=== PATIENT | male | born 1935 | race Caucasian/White ===

== ENCOUNTER 2020-05-28 15:18 | Inpatient (IN) | payer BC ==
[~2020-05-28] VITALS: Ht 170.2 cm; Wt 70.3 kg
--- NOTE | 2020-05-28 15:20 | NUR ---
PT JAYDE FROM [facility] ([place], [place]) FOR EMERGENCY DIALYSIS. PT IS AAOX2, NOT IN RESPIRATORY DISTRESS, HOOKED TO CONTROLS PROJECT ENGINEER, KEPT RESTED AND COMFORTABLE. WILL CONTINUE TO MONITOR.
--- NOTE | 2020-05-28 15:32 | NUR ---
SEEN AND EXAMINED BY .
--- NOTE | 2020-05-28 15:50 | NUR ---
IV LINE ESTABLISHED BLOOD DRAWN AND SENT TO LAB.
[2020-05-28 16:00] LABS: BASOPHILS % (AUTO) 0.3 % (0.0-2.0); EOSINOPHILS % (AUTO) 4.8 % (0.0-6.0); HEMATOCRIT 32 % (39-51); HEMOGLOBIN 10.2 g/dL (13.5-17.5); LYMPHOCYTES # (AUTO) 1.5 /CMM (0.8-4.8); LYMPHOCYTES % (AUTO) 21.7 % (20.0-44.0); MEAN CORPUSCULAR HGB CONC 32 g/dl (31.0-36.0); MEAN CORPUSCULAR VOLUME 91 fL (80-96); MONOCYTES # (AUTO) 0.7 /CMM (0.1-1.30); MONOCYTES % (AUTO) 10.6 % (2.0-12.0); NEUTROPHILS # (AUTO) 4.3 /CMM (1.8-8.9); NEUTROPHILS % (AUTO) 62.6 % (43.0-81.0); PLATELET COUNT (AUTO) 125 /CMM (150-450); RED BLOOD CELL COUNT(AUTO) 3.54 MIL/uL (4.5-6.0); WHITE BLOOD COUNT (AUTO) 6.9 K/uL (4.3-11.0)
[2020-05-28 16:15] LABS: ALANINE AMINOTRANSFERASE 18 U/L (12-78); ALBUMIN 3.3 g/dL (3.4-5.0); ALKALINE PHOSPHATASE 101 U/L (46-116); ASPARTATE AMINOTRANSFERASE 34 U/L (15-37); BILIRUBIN,DIRECT 0.1 mg/dL (0.0-0.2); BILIRUBIN,TOTAL 0.3 mg/dL (0.2-1.0); CALCIUM, SERUM 9.3 mg/dL (8.5-10.1); CARBON DIOXIDE 26 mmol/L (21-32); CHLORIDE 98 mmol/L (98-107); CREATININE 7.1 mg/dL (0.6-1.3); GLUCOSE 115 mg/dL (74-106); POTASSIUM 4.5 mmol/L (3.5-5.1); SODIUM SERUM 135 mmol/L (136-145); TOTAL PROTEIN, SERUM 6.8 g/dL (6.4-8.2); UREA NITROGEN, BLOOD 34 mg/dL (7-18)
--- NOTE | 2020-05-28 16:21 | NUR ---
COVID SWAB OBTAINED AND SENT TO LAB.
--- NOTE | 2020-05-28 16:40 | NUR ---
MOVE SHEET SUBMITTED
--- NOTE | 2020-05-28 16:44 | NUR ---
CALLED HOUSE SUP FOR TELEBED PANCHO PER
[2020-05-28] MEDS ORDERED: CARV3.12 PO (16:57)
[2020-05-28] MEDS ORDERED: AMLO2.5T2 PO (16:57)
[2020-05-28] MEDS ORDERED: SIMV-46 PO (16:57)
[2020-05-28] MEDS ORDERED: MAGN400O6 PO (16:57)
[2020-05-28] MEDS ORDERED: MEMA10TA PO (16:57)
[2020-05-28] MEDS ORDERED: NUT.237L67 PO (16:57)
[2020-05-28] MEDS ORDERED: VIT1TABL46 PO (16:57)
[2020-05-28] MEDS ORDERED: QUET50TA15 PO (16:57)
[2020-05-28] MEDS ORDERED: ACET325T53 PO (16:57)
[2020-05-28] MEDS ORDERED: SEVE800T8 PO (16:57)
[2020-05-28] MEDS ORDERED: CHOL200010 PO (16:57)
[2020-05-28] MEDS ORDERED: MELA1TAB25 PO (16:57)
[2020-05-28] MEDS ORDERED: DONE10TA44 PO (16:57)
[2020-05-28] MEDS ORDERED: TIMO5DRO35 LEFTEYE (16:57)
[2020-05-28] MEDS ORDERED: FAMO20TA8 PO (16:57)
[2020-05-28] MEDS ORDERED: PRAM0.253 PO (16:57)
[2020-05-28] MEDS ORDERED: HYDR-4077 PO (16:57)
[2020-05-28] MEDS ORDERED: DOCU-141 PO (16:57)
[2020-05-28] MEDS ORDERED: LOPE2TAB25 PO (16:57)
[2020-05-28] MEDS ORDERED: NITR0.4T48 SL (16:57)
--- NOTE | 2020-05-28 17:09 | NUR ---
GOT BED 256
--- NOTE | 2020-05-28 17:45 | NUR ---
REPORT GIVEN TO LYNDA NAGY FOR RENATA.
--- NOTE | 2020-05-28 17:58 | NUR ---
TOXICOLOGIST NOTES RECEIVED PT FROM ER, PER REPORT PATIENT IS FOR HD, DUE TO A MISSED HD YESTERDAY. PATIENT IS ALERT ORIENTED X 3, ON ROOM AIR, NOT IN ANY DISTRESS, RESPIRATION UNLABORED. SINUS RHYTHM WITH BBB HR 74, DENIES ANY PAIN OR DISCOMFORT AT THIS TIME. OLD AV SHUNT ON LEFT UPPER ARM, WITH HD CATH TO RIGHT CHEST WALL WITH CDI DRESSING, RT WRIST G 22, FLUSHES WELL SITE CLEAR. ISOLATION PRECAUTION OBSERVED FOR R/O COVID. BEDREST FOR NOW, UNIT ORIENTATION AND USE OF CALL LIGHT DONE, DISCUSSED PLAN FOR HD TODAY, CONSENT TO BE SIGNED. BED LOW LOCKED, SAFETY MEASURES IN PLACE, CALL LIGHT WITH IN REACH. WILL CONT TO MONITOR.
--- NOTE | 2020-05-28 18:17 | NUR ---
RN NOTES DR. MICHELLE DIEHL NOTIFIED. ADMITTING ORDERS GIVEN AND CARRIED OUT.
--- NOTE | 2020-05-28 18:22 | NUR ---
RN NOTES DR. Stephon DIEHL AWARE OF BP 213/70. NO BP MEDS GIVEN FOR NOW, PER MD HE WILL HAVE HD TODAY. DIANE HD NURSE AT BEDSIDE.
[2020-05-28 18:50] VITALS: BP 164/71
--- NOTE | 2020-05-28 19:10 | NUR ---
RN NOTES RECEIVED PT ON BED AWAKE A/O X4 ON ROOM AIR SPO2 98% BEDSIDE MONITOR READS SINUS RHYTHM 80'S PT IS CURRENTLY ON HD, TOLERATING WELL HD NURSE AT BEDSIDE, CURRENT BP 183/76 HR 69 TEMP 98.2 RR 20, PT IS ON DROPLET ISOLATIO TO R/O COVID PENDING RESULT, SAFETY MEASURE MAINTAINED BED ON LOWEST POSITION AND LOCKED SIDERAILS UP X4 WILL CONT TO MONITOR
--- NOTE | 2020-05-28 19:26 | NUR ---
RN NOTES PER , CONTINUE ALL HOME MEDICATIONS AND FAXED TO PHARMACY. REPORT GIVEN TO DONNY HOWELL FOR RENATA
[2020-05-28] MEDS ORDERED: ACETAMINOPHEN 325 MG TABLET PO PRN (19:30)
[2020-05-28 20:00] VITALS: BP 100/51
--- NOTE | 2020-05-28 21:00 | NUR ---
RN NOTES PT COMPLETED HD OUTPUT 2L WITH LATEST V/S OF 170/54 HR 75 TEMP 98.1 RR 18 PT IS AWAKE A/O X 4 SANDWICH WAS GIVEN ATE WELL WILL CONT TO MONITOR
[2020-05-28] MEDS: DONEPEZIL 5 MG TABLET PO SCH (21:15)
[2020-05-28] MEDS: SIMVASTATIN 20 MG TABLET PO SCH (21:15)
[2020-05-28] MEDS: QUETIAPINE FUMARATE 25 MG TABLET PO SCH (21:15)
[2020-05-28] MEDS: NITROGLYCERIN 30 GM TUBE TP PRN (21:16)
[2020-05-28] MEDS: PRAMIPEXOLE DI-HCL 0.25 MG TABLET PO SCH (22:00)
--- NOTE | 2020-05-28 22:00 | NUR ---
RN NOTES CALLED DR. DIEHL AND REPORT THAT PT BLOOD PRESSURE IS STILL HIGH WITH 202/73 HR 67 DESPITE GIVING THE PRN NITROL CREAM, DR. DIEHL GIVE ORDER FOR HYDRALAZINE 10MG IV Q8H FOR SBP >180 NOTED AND CARRIED OUT
--- NOTE | 2020-05-28 22:26 | NUR ---
RN NOTES MIRAPEX NOT GIVEN NOT AVAILABLE CHARGE NURSE/MD AWARE
[2020-05-28] MEDS: hydrALAZINE HCL IV 20 MG VIAL IV PRN (22:36)
--- NOTE | 2020-05-28 23:00 | NUR ---
RN NOTES BP RECHECKED 164/48 HR 68 WILL CONT TO MONITOR THE PT
[2020-05-29] VITALS (9 sets, daily range): BP systolic 145–198; BP diastolic 39–75
[2020-05-29] MEDS: hydrALAZINE HCL IV 20 MG VIAL IV PRN ×2 (04:21→16:48)
[2020-05-29 04:50] LABS: BASOPHILS # (AUTO) 0.1 /CMM (0.0-0.2); BASOPHILS % (AUTO) 0.8 % (0.0-2.0); EOSINOPHILS % (AUTO) 5.4 % (0.0-6.0); HEMATOCRIT 31 % (39-51); LYMPHOCYTES # (AUTO) 1.6 /CMM (0.8-4.8); LYMPHOCYTES % (AUTO) 23.1 % (20.0-44.0); MEAN CORPUSCULAR HGB CONC 32 g/dl (31.0-36.0); MEAN CORPUSCULAR VOLUME 89 fL (80-96); MONOCYTES # (AUTO) 0.9 /CMM (0.1-1.30); MONOCYTES % (AUTO) 13.2 % (2.0-12.0); NEUTROPHILS # (AUTO) 3.9 /CMM (1.8-8.9); NEUTROPHILS % (AUTO) 57.5 % (43.0-81.0); WHITE BLOOD COUNT (AUTO) 6.8 K/uL (4.3-11.0)
[2020-05-29 05:01] LABS: CALCIUM, SERUM 8.9 mg/dL (8.5-10.1); CARBON DIOXIDE 28 mmol/L (21-32); CHLORIDE 100 mmol/L (98-107); CREATININE 5.4 mg/dL (0.6-1.3); GLUCOSE 75 mg/dL (74-106); POTASSIUM 3.9 mmol/L (3.5-5.1); SODIUM SERUM 136 mmol/L (136-145); UREA NITROGEN, BLOOD 26 mg/dL (7-18)
[2020-05-29 06:16] LABS: PLATELET COUNT (AUTO) 106 /CMM (150-450)
[2020-05-29 06:19] LABS: BASOPHILS % (MANUAL) 1 % (0.0-2.0); EOSINOPHILS % (MANUAL) 3 % (0-4); LYMPHOCYTES % (MANUAL) 24 % (16-48); MONOCYTES % (MANUAL) 13 % (0-11.0); NEUTROPHILS % (MANUAL) 59 (42-76)
--- NOTE | 2020-05-29 06:20 | NUR ---
SENIOR MOBILE WEB DEVELOPER NOTES RECEIVED PATIENT FROM ICU VIA WHEELCHAIR, ALERT AND ORIENTED X 3. VERBALLY RESPONSIVE AND ABLE TO FOLLOW DIRECTIONS. BREATHING REGULAR AND UNLABORED ON ROOM AIR. RIGHT WRIST G22 IV LINE INTACT AND PATENT, FLUSHING WELL. ON CARDIAC MONITORING WITH NSR WITH PAC'S AT 64bpm. DENIES SUICIDAL IDEATION OR PAIN/DISCOMFORT AT THIS TIME. BED LOW AND LOCKED ON SEMI FOWLERS POSITION. CALL LIGHT IN REACH. WILL CONTINUE TO MONITOR.
--- NOTE | 2020-05-29 06:24 | NUR ---
RN NOTES TRANSFER PT TO ROOM 202 PER ACLS PROTOCOL PT LATEST V/S BEFORE TRANSFER IS 164/86 HR 62 RR 20 TEMP 97.8 SPO2 98% VIA ROOM AIR, PT IS AWAKE A/O X4, REPORT GIVEN TO MS HAILY HOWELL OF [facility] FOR RENATA
--- NOTE | 2020-05-29 07:01 | NUR ---
RN JERMAINE DEJESUS ( PT DAUGHTER ) MADE AWARE OF THE TRANSFER VIA PHONE CALL AND DR. DIEHL ALSO MADE AWARE OF THE TRANSFER
--- NOTE | 2020-05-29 07:30 | NUR ---
MANAGER RISK MANAGEMENT NOTES PT IN BED, ASLEEP, EASY TO AROUSE, ALERT AND ORIENTED, DENIES PAIN, RESPIRATIONS NORMAL, CALL LIGHT WITHIN REACH, KEPT WARM AND COMFORTABLE IN BED.
[2020-05-29] MEDS: NITROGLYCERIN 30 GM TUBE TP PRN (08:46)
[2020-05-29] MEDS ORDERED: SIMVASTATIN 20 MG TABLET PO SCH (09:30)
[2020-05-29] MEDS ORDERED: MAGNESIUM HYDROXIDE 30 ML UDC PO PRN (09:30)
[2020-05-29] MEDS ORDERED: NITROGLYCERIN 0.4 MG/TAB BOTTLE SL PRN (09:30)
[2020-05-29] MEDS: CHOLECALCIFEROL 1,000 UNIT TABLET (VIT D3) PO SCH (09:59)
[2020-05-29] MEDS: DOCUSATE SODIUM 100 MG CAPSULE PO SCH (09:59)
[2020-05-29] MEDS: VIT B CMPLX 3/FA/VIT C/BIOTIN 1 TAB TABLET PO SCH (09:59)
[2020-05-29] MEDS: FAMOTIDINE (20 MG) 20 MG TABLET PO SCH (09:59)
[2020-05-29] MEDS: AMLODIPINE BESYLATE 2.5 MG TABLET PO SCH (10:00)
[2020-05-29] MEDS: CARVEDILOL 3.125 MG TABLET PO SCH ×2 (10:00→16:08)
[2020-05-29] MEDS: hydrALAZINE HCL 50 MG TABLET PO SCH ×3 (10:00→16:08)
[2020-05-29 10:19] LABS: THYROID STIMULATING HORMONE 3.557 uIU/mL (0.358-3.74)
[2020-05-29] MEDS ORDERED: LOPERAMIDE HCL (2 MG CAP) 2 MG CAPSULE PO PRN (10:30)
--- NOTE | 2020-05-29 10:33 | NUR ---
SWITCHBOARD TROUBLESHOOTER NOTES PT IN BED, AWAKE, ALERT AND ORIENTED, DENIES PAIN, NOT IN DISTRESS, SEEN BY DR. Stephon DIEHL, NO FURTHER DIALYSIS ORDERED, PT'S NEXT DIALYSIS WILL BE ON SATURDAY, PT INFORMED, HIDE SORTER INFORMED.
[2020-05-29] MEDS: SEVELAMER CARBONATE 800 MG POWD.PACK PO SCH ×3 (10:44→17:33)
[2020-05-29] MEDS: MEMANTINE HCL 5 MG TABLET PO SCH (16:07)
--- NOTE | 2020-05-29 16:30 | NUR ---
SUBSTATION OPERATOR CHIEF NOTES PT IN BED, NO COMPLAINT AT THIS TIME, PT FOR DISCHARGE TO [facility], SPOKE WITH SHITAL, INFORMED THAT PT IS BEING DISCHARGED BACK AT 1700, PT'S DAUGHTER CORA INFORMED WELL.
--- NOTE | 2020-05-29 17:47 | NUR ---
SCALES INSPECTOR NOTES PT IN BED, AWAKE, ALERT AND ORIENTED, NO COMPLAINT OF PAIN OR ANY DISCOMFORT, PT'S BP STILL ELEVATED AT 171/68 HR 74, ALL PO AND PRN BP MEDS GIVEN ORDERED, AMBULANCE OUTREACH SPECIALIST IS HERE, RECEIVED ORDER FROM DR. Stephon DIEHL TO GIVE HYDRALAZINE 10MG IV X 1, ORDERS NOTED, WILL CONTINUE TO MONITOR, PLACED AMBULANCE SERVICE ON WILL CALL.
[2020-05-29] MEDS ORDERED: hydrALAZINE HCL IV 20 MG VIAL IV ONE (18:00)
--- NOTE | 2020-05-29 18:09 | NUR ---
LUMPIA WRAPPER MAKER NOTES PT IN BED, BP MED GIVEN ORDERED, WILL CONTINUE TO MONITOR, NO COMPLAINT OF PAIN OR ANY DISCOMFORT, EATING DINNER, TOLERATES WELL.
--- NOTE | 2020-05-29 18:14 | NUR ---
OSTEOPATHIC NEUROLOGIST NOTES PT REMOVED HIS TELE BOX, REFUSES TO HAVE THEM ON.
--- NOTE | 2020-05-29 18:50 | NUR ---
HIRED HAND NOTES PT'S NEHA BARRETT OF [facility] INFORMED THAT PT'S DISCHARGE IS DELAYED.
--- NOTE | 2020-05-29 18:50 | NUR ---
LOGISTICS LOSS PREVENTION MANAGER NOTES PT'S BP NOW 172/62 HR 71, DR. DIEHL INFORMED, NO FURTHER ORDER GIVEN, PER MD, PT CAN STAY OVERNIGHT FOR MONITORING, PT IN BED, EATING DINNER, NO COMPLAINT OF PAIN, NOT IN DISTRESS, CALL LIGHT WITHIN REACH, NEEDS ATTENDED.
--- NOTE | 2020-05-29 19:20 | NUR ---
CREDIT AUTHORIZER OPEN NOTES PATIENT IS LAYING IN BED WATCHING TV. A/O X3-4. ON RA, NO SOB/ ACUTE RESPIRATORY DISTRESS NOTED. NO COMPLAINTS OF PAIN AT THE MOMENT. BED IS IN LOWEST LOCKED POSITION WITH SIDE RAILS UP X3, SEMI FOWLERS. CALL LIGHT IS WITHIN REACH. WILL CONTINUE TO MONITOR.
--- NOTE | 2020-05-29 19:25 | NUR ---
SPECIAL PROCEDURES NURSE NOTES PLACED TELE MONITOR BACK ON PT. EXPLAINED TO HIM THAT HE IS NOT GETTING DISCHARGED YET DUE TO HIS HIGH BP AND THAT WE NEED TO MONITOR HIM. PT AGREED TO HAVING IT PLACED BACK ON. WILL CONTINUE TO MONITOR.
[2020-05-29] MEDS: DONEPEZIL 5 MG TABLET PO SCH (21:06)
[2020-05-29] MEDS: SIMVASTATIN 20 MG TABLET PO SCH (21:07)
[2020-05-29] MEDS: PRAMIPEXOLE DI-HCL 0.25 MG TABLET PO SCH (21:07)
[2020-05-29] MEDS: QUETIAPINE FUMARATE 25 MG TABLET PO SCH (21:07)
[2020-05-29] MEDS ORDERED: Medication Not On Formulary EA (Melatonin/Pyridoxine HCl (B6) (Melatonin 10 mg Tablet) 1 PO SCH (22:00)
[2020-05-29] MEDS ORDERED: Medication Not On Formulary EA (Donepezil Hcl 10 MG) PO SCH (22:00)
[2020-05-29] MEDS ORDERED: PRAMIPEXOLE DI-HCL 0.25 MG TABLET PO SCH (22:00)
[2020-05-30 00:22] VITALS: BP 158/72
[2020-05-30 04:00] VITALS: BP 193/91
[2020-05-30] MEDS ORDERED: hydrALAZINE HCL IV 20 MG VIAL ONE (04:43)
[2020-05-30] MEDS: hydrALAZINE HCL IV 20 MG VIAL IV PRN (04:50)
--- NOTE | 2020-05-30 05:06 | NUR ---
SURGICAL NURSE NOTES PT'S BP WAS 193/91, UNIT DOESN'T HAVE HYDRALAZINE 10MG IV PRN IN STOCK. REMOVED THE MED FROM 3W IN WHICH I STATED I AM ONLY ADMINISTERING 10MG. PT'S EMAR NOW SHOWS HE HAS A SCHEDULED HYDRALAZINE 20MG @ 0443 "STOCK MED ONCE." PER PHARMACY, JUST SCAN AND PUT IN NOTES THAT I AM ADMINISTERING THE HYDRALAZINE 10 MG PRN IV.
--- NOTE | 2020-05-30 06:14 | NUR ---
MINE SHIFTER CLOSE NOTES PATIENT IS LAYING IN BED. A/O X4. ON RA, SATURATING > 95%, NO SOB/ ACUTE RESPIRATORY DISTRESS NOTED. TELE MONITOR READING SR, 78. IV IN R WRIST #22G IS PATENT AND INTACT. PATIENT DENIES ANY PAIN AT THE MOMENT. BED IS IN LOWEST LOCKED POSITION WITH SIDE RAILS UP X3, SEMI FOWLERS. BED ALARM ON. CALL LIGHT IS WITHIN REACH. WILL ENDORSE TO AM NURSE.
[2020-05-30 06:31] VITALS: BP 173/87
--- NOTE | 2020-05-30 07:30 | NUR ---
RN OPENING NOTES\ PATIENT IN STABLE CONDITION. NOT IN ANY FORM OF DISTRESS. NO SOB. DENIED PAIN OR DISCOMFORT AT THIS TIME. IV ACCESS INTACT AND PATENT. SAFETY MEASURES INITIATED. BED IN LOW/LOCKED POSITION. SIDERAILS UPX2,CALL LIGHT IN REACH. WILL CONT TO MONITOR. ACCORDINGLY
[2020-05-30 08:00] VITALS: BP 177/67
[2020-05-30] MEDS: AMLODIPINE BESYLATE 2.5 MG TABLET PO SCH (09:00)
[2020-05-30] MEDS: hydrALAZINE HCL 50 MG TABLET PO SCH (09:00)
[2020-05-30] MEDS ORDERED: TIMOLOL 0.5% SOLN OPHTH 5 ML BOTTLE LEFTEYE SCH (09:00)
[2020-05-30] MEDS: CARVEDILOL 3.125 MG TABLET PO SCH (09:00)
[2020-05-30] MEDS: DOCUSATE SODIUM 100 MG CAPSULE PO SCH (09:01)
[2020-05-30] MEDS: SEVELAMER CARBONATE 800 MG POWD.PACK PO SCH ×2 (09:01→13:02)
[2020-05-30] MEDS: CHOLECALCIFEROL 1,000 UNIT TABLET (VIT D3) PO SCH (09:02)
[2020-05-30] MEDS: FAMOTIDINE (20 MG) 20 MG TABLET PO SCH (09:02)
[2020-05-30] MEDS: VIT B CMPLX 3/FA/VIT C/BIOTIN 1 TAB TABLET PO SCH (09:03)
[2020-05-30] MEDS: MEMANTINE HCL 5 MG TABLET PO SCH (09:03)
[2020-05-30] MEDS ORDERED: ISOSORBIDE DINITRATE (20MG) 20 MG TABLET PO SCH (10:00)
[2020-05-30 10:05] LABS: BASOPHILS % (AUTO) 0.7 % (0.0-2.0); EOSINOPHILS % (AUTO) 6.1 % (0.0-6.0); HEMATOCRIT 33 % (39-51); HEMOGLOBIN 10.5 g/dL (13.5-17.5); LYMPHOCYTES # (AUTO) 1.1 /CMM (0.8-4.8); LYMPHOCYTES % (AUTO) 17.5 % (20.0-44.0); MEAN CORPUSCULAR HGB CONC 32 g/dl (31.0-36.0); MEAN CORPUSCULAR VOLUME 89 fL (80-96); MONOCYTES # (AUTO) 0.7 /CMM (0.1-1.30); MONOCYTES % (AUTO) 10.9 % (2.0-12.0); NEUTROPHILS # (AUTO) 4.2 /CMM (1.8-8.9); NEUTROPHILS % (AUTO) 64.8 % (43.0-81.0); PLATELET COUNT (AUTO) 101 /CMM (150-450); RED BLOOD CELL COUNT(AUTO) 3.66 MIL/uL (4.5-6.0); WHITE BLOOD COUNT (AUTO) 6.5 K/uL (4.3-11.0)
--- NOTE | 2020-05-30 10:50 | NUR ---
HD today. 2L output. patient tolerated well
[2020-05-30 12:00] VITALS: BP 160/55
[2020-05-30] MEDS ORDERED: hydrALAZINE HCL 50 MG TABLET PO SCH (13:00)
[2020-05-30 13:02] VITALS: BP 160/55
[2020-05-30 13:08] LABS: CALCIUM, SERUM 8.9 mg/dL (8.5-10.1); CARBON DIOXIDE 25 mmol/L (21-32); CHLORIDE 98 mmol/L (98-107); GLUCOSE 78 mg/dL (74-106); POTASSIUM 4.5 mmol/L (3.5-5.1); SODIUM SERUM 132 mmol/L (136-145); UREA NITROGEN, BLOOD 41 mg/dL (7-18)
[2020-05-30 13:13] LABS: ALANINE AMINOTRANSFERASE 17 U/L (12-78); ALBUMIN 3.2 g/dL (3.4-5.0); ALKALINE PHOSPHATASE 95 U/L (46-116); ASPARTATE AMINOTRANSFERASE 32 U/L (15-37); BILIRUBIN,TOTAL 0.6 mg/dL (0.2-1.0); TOTAL PROTEIN, SERUM 6.5 g/dL (6.4-8.2)
[2020-05-30 13:14] LABS: CREATININE 7.5 mg/dL (0.6-1.3)
[2020-05-30 13:31] LABS: MAGNESIUM 2.6 mg/dL (1.8-2.4); PHOSPHORUS 4.6 mg/dL (2.5-4.9)
--- NOTE | 2020-05-30 13:37 | NUR ---
discharged patient in stable condition, picked up by ambulance. dc instructions given to patient,verbalized understanding. dc paperwork handed to legal counsel. All belongings returned to patient. forms signed. iv access removed, applied pressure, no bleeding. name band removed.
[2020-05-30] MEDS ORDERED: CARVEDILOL 12.5 MG TABLET PO SCH (17:00)
[2020-05-30] MEDS ORDERED: CARVEDILOL 3.125 MG TABLET PO SCH (17:00)
== END 2020-05-30 13:40 | DRG 291 ==
LOC: ER 15:18 → ICU 17:19 → TELE2 05-29 05:56
PROVIDERS: ADMIT Internal Medicine Nephrology; ATTEND Internal Medicine Nephrology
PROC: 5A1D70Z Performance of Urinary Filtration, Intermittent, Less than 6 Hours Per Day (ICD-10-PCS; principal; 2020-05-28)
DX: I13.2 Hypertensive heart and chronic kidney disease with heart failure and with stage 5 chronic kidney disease, or end stage renal disease (principal); N18.6 End stage renal disease; I50.9 Heart failure, unspecified; Z99.2 Dependence on renal dialysis; F03.90 Unspecified dementia, unspecified severity, without behavioral disturbance, psychotic disturbance, mood disturbance, and anxiety; Z88.5 Allergy status to narcotic agent; Z88.8 Allergy status to other drugs, medicaments and biological substances; Z91.15 Patient's noncompliance with renal dialysis; Z79.899 Other long term (current) drug therapy; D69.6 Thrombocytopenia, unspecified
CPT/HCPCS: 36415; 71045-TC; 80048-TC; 80053-TC; 80061-TC; 80076-TC; 82728-TC; 83540-TC; 83735-TC; 84100-TC; 84439-TC; 84443-TC; 84484-TC; 85025-TC; 85730-TC; 86706; 87081-TC; 87340; 90935-TC; G0378; J0360; U0003-CS

== ENCOUNTER 2020-07-20 13:44 | Inpatient (IN) | payer BC ==
[~2020-07-20] VITALS: Ht 162.6 cm; Wt 69.9 kg
[~2020-07-20 13:44] MED LIST: ACET325T53 PO; AMLO2.5T2 PO; CARV3.12 PO; CHOL200010 PO; DOCU-141 PO; DONE10TA44 PO; FAMO20TA8 PO; HYDR-4077 PO; LOPE2TAB25 PO; MAGN400O6 PO; MELA1TAB25 PO; MEMA10TA PO; NITR0.4T48 SL; NUT.237L67 PO; PRAM0.253 PO; QUET50TA15 PO; SEVE800T8 PO; SIMV-46 PO; TIMO5DRO35 LEFTEYE; VIT1TABL46 PO
--- NOTE | 2020-07-20 14:00 | NUR ---
JAVIER VELIZ [facility] HEMOGLOBIN 6.8 DRAWN 07/18/20 ESRD. (M,W,F) NOT DIALYZED TODAY. PATIENT A/OX3, BELARUSIAN AND CENTRAL AFRICAN SPEAKING ONLY. NO DISTRESS NOTED. NEEDS ATTENDED. ATTACHED TO THE HAULPAK DRIVER.
[2020-07-20 14:30] LABS: BASOPHILS # (AUTO) 0.2 /CMM (0.0-0.2); BASOPHILS % (AUTO) 3.3 % (0.0-2.0); EOSINOPHILS % (AUTO) 4.9 % (0.0-6.0); HEMATOCRIT 23 % (39-51); HEMOGLOBIN 7.2 g/dL (13.5-17.5); LYMPHOCYTES # (AUTO) 0.7 /CMM (0.8-4.8); LYMPHOCYTES % (AUTO) 12.3 % (20.0-44.0); MEAN CORPUSCULAR HGB CONC 31 g/dl (31.0-36.0); MEAN CORPUSCULAR VOLUME 93 fL (80-96); MONOCYTES # (AUTO) 0.6 /CMM (0.1-1.30); MONOCYTES % (AUTO) 9.5 % (2.0-12.0); NEUTROPHILS # (AUTO) 4.2 /CMM (1.8-8.9); PLATELET COUNT (AUTO) 140 /CMM (150-450)
[2020-07-20] MEDS ORDERED: LISI-603 PO (14:31)
[2020-07-20 14:42] LABS: ALANINE AMINOTRANSFERASE 12 U/L (12-78); ALBUMIN 3.5 g/dL (3.4-5.0); ALKALINE PHOSPHATASE 92 U/L (46-116); ASPARTATE AMINOTRANSFERASE 17 U/L (15-37); BILIRUBIN,DIRECT 0.1 mg/dL (0.0-0.2); BILIRUBIN,TOTAL 0.2 mg/dL (0.2-1.0); CALCIUM, SERUM 9.5 mg/dL (8.5-10.1); CARBON DIOXIDE 29 mmol/L (21-32); CHLORIDE 101 mmol/L (98-107); GLUCOSE 131 mg/dL (74-106); POTASSIUM 4.5 mmol/L (3.5-5.1); SODIUM SERUM 139 mmol/L (136-145); TOTAL PROTEIN, SERUM 7.1 g/dL (6.4-8.2); UREA NITROGEN, BLOOD 54 mg/dL (7-18)
[2020-07-20 15:18] LABS: CREATININE 7.7 mg/dL (0.6-1.3)
--- NOTE | 2020-07-20 16:32 | NUR ---
REPORT GIVEN TO DONALD HOWELL.
--- NOTE | 2020-07-20 16:33 | NUR ---
BED 307-1
--- NOTE | 2020-07-20 16:57 | NUR ---
PATIENT RESTING, NO DISTRESS NOTED.
[2020-07-20] MEDS ORDERED: EPOETIN ALFA (10,000 UNIT) 10,000 UNIT/ML VIAL IV ONE (17:00)
--- NOTE | 2020-07-20 17:20 | NUR ---
RN OPENING NOTE THE PATIENT IS RECEIVED ON A GURNEY FROM ER. IN ROOM AIR AND DENIES SOB. RESPIRATION REGULAR AND UNLABORED. DENIES PAIN. THE PATIENT IS IN NO APPARENT DISTRESS. RIGHT CHEST WALL HD CATH PRESENT, LEFT UPPER AV SHUNT OLD AND NOT FUNCTIONING PER PATIENT. LEFT WRIST G 18 PATENT AND SALINE LOCKED. ORIENTATION GIVEN TO THE PATIENT AND HE VERBALIZED UNDERSTANDING. BED LOW AND LOCKED. SIDE RAILS UP X3. CALL LIGHT WITHIN REACH. WILL CONTINUE TO MONITOR.
--- NOTE | 2020-07-20 17:20 | NUR ---
PATIENT TRANSFERRED TO ROOM 307-1 VIA ACLS PROTOCOL, IN STABLE CONDITION. ENDORSED TO DONALD RN FOR RENATA.
[2020-07-20] MEDS ORDERED: ACETAMINOPHEN 325 MG TABLET PO PRN ×2 (18:30→19:00)
[2020-07-20] MEDS ORDERED: MAGNESIUM HYDROXIDE 30 ML UDC PO PRN ×2 (18:30→19:00)
[2020-07-20] MEDS ORDERED: MAG HYDROX/AL HYDROX/SIMETH 30 ML UDC PO PRN (18:30)
[2020-07-20] MEDS ORDERED: ONDANSETRON HCL/PF 4 MG/2 ML VIAL IVP PRN (18:30)
--- NOTE | 2020-07-20 18:55 | NUR ---
RN CLOSING NOTE THE PATIENT IS ALERT AND ORIENTED X3. IN ROOM AIR AND SATURATION IS AT 94%. DENIES SOB. RESPIRATION REGULAR AND UNLABORED. DENIES PAIN. TELE BOX ON PER POLICY. RIGHT UPPER CHESTWALL HD CATH PRESENT. LEFT UPPER ARM AV SHUNT PRESENT AND NON-FUNCTIONING. LEFT WRIST G 18 PATENT AND SALINE LOCKED. BED LOW AND LOCKED. SIDE RAILS UP X3. CALL LIGHT WITHIN REACH. WILL ENDORSE TO SPA DIRECTOR/FINANCE.
--- NOTE | 2020-07-20 18:59 | NUR ---
RN NOTE EPOGEN DUE AT 1700 WILL BE ADMINISTERED AFTER DIALYSIS WHICH IS SCHEDULED TO BE DONE TODAY AT 1930. BAG MACHINE SET UP OPERATOR IS ENDORSED. PER GERARDO CARRENO DIET ORDER TIME CHANGED FROM 07/21/20 BREAKFAST TO 07/20/20 DINNER. NOTED AND CARRIED OUT.
[2020-07-20] MEDS ORDERED: LOPERAMIDE HCL (2 MG CAP) 2 MG CAPSULE PO PRN (19:00)
[2020-07-20] MEDS ORDERED: NITROGLYCERIN 0.4 MG/TAB BOTTLE SL PRN (19:00)
--- NOTE | 2020-07-20 19:30 | NUR ---
TELE/RN NOTES RECEIVED PATIENT IN BED RESTING. PATIENT IS ALERT AND ORIENTED X 3. PATIENT IN NO SIGNS OF DISTRESS. BREATHING IS EVEN AND UNLABORED. NO SIGNS OF SOB OR RESPIRATORY DISTRESS NOTED. PATIENT TELE READING SR 74. PATIENT HAS RIGHT CHEST PERMA CATH, LEFT WRIST #18G INTACT. PATIENT SIGNED CONSENT TO RECEIVED HD TONIGHT. SAFETY MEASURES ARE IN PLACE, BED IS LOCKED AND PLACED IN THE LOW POSITION, BED ALARM ON. CALL LIGHT IS WITHIN REACH. WILL CONTINUE TO MONITOR THROUGH OUT SHIFT.
[2020-07-20 20:00] VITALS: BP 134/65
--- NOTE | 2020-07-20 20:30 | NUR ---
TELE/RN NOTES PATIENT WILL START ON HD. HD NURSE IN PATIENT ROOM.
[2020-07-20] MEDS: PRAMIPEXOLE DI-HCL 0.25 MG TABLET PO SCH (22:00)
[2020-07-20] MEDS: QUETIAPINE FUMARATE 25 MG TABLET PO SCH (22:00)
[2020-07-20] MEDS: DONEPEZIL 5 MG TABLET PO SCH (22:00)
--- NOTE | 2020-07-20 22:00 | NUR ---
TELE/RN NOTES PATIENT CURRENTLY RECEIVING HD, PO MEDS HELD.
[2020-07-20] MEDS: TIMOLOL 0.5% SOLN OPHTH 5 ML BOTTLE LEFTEYE SCH (22:43)
[2020-07-21] VITALS (8 sets, daily range): BP systolic 105–162; BP diastolic 50–66
--- NOTE | 2020-07-21 06:30 | NUR ---
TELE/RN CLOSING NOTES PATIENT IN BED RESTING. PATIENT IS ALERT AND ORIENTED X 2-3. PATIENT IN NO SIGNS OF DISTRESS. BREATHING IS EVEN AND UNLABORED. NO SIGNS OF SOB OR RESPIRATORY DISTRESS NOTED. PATIENT TELE READING SR 70'S. PATIENT HAS RIGHT CHEST PERMA CATH INTACT DRESSING CLEAN NO SIGNS OF ACTIVE BLEEDING, LEFT WRIST #18G INTACT. ALL NEEDS MET DURING SHIFT. SAFETY MEASURES ARE IN PLACE, BED IS LOCKED AND PLACED IN THE LOW POSITION, BED ALARM ON. CALL LIGHT IS WITHIN REACH. WILL ENDORSE CARE TO DAY SHIFT.
[2020-07-21] MEDS: NEPRO VAN 237 ML CAN PO SCH (09:00)
[2020-07-21] MEDS: FAMOTIDINE (20 MG) 20 MG TABLET PO SCH (09:28)
[2020-07-21] MEDS: CHOLECALCIFEROL 1,000 UNIT TABLET (VIT D3) PO SCH (09:28)
[2020-07-21] MEDS: SIMVASTATIN 20 MG TABLET PO SCH (09:29)
[2020-07-21] MEDS: LISINOPRIL (20MG) 20 MG TABLET PO SCH ×2 (09:29→16:13)
[2020-07-21] MEDS: AMLODIPINE BESYLATE 2.5 MG TABLET PO SCH (09:29)
[2020-07-21] MEDS: hydrALAZINE HCL 50 MG TABLET PO SCH ×4 (09:30→16:13)
[2020-07-21] MEDS: VIT B CMPLX 3/FA/VIT C/BIOTIN 1 TAB TABLET PO SCH (09:30)
[2020-07-21] MEDS: CARVEDILOL 3.125 MG TABLET PO SCH ×2 (09:31→16:14)
[2020-07-21] MEDS: DOCUSATE SODIUM 100 MG CAPSULE PO SCH (09:31)
[2020-07-21] MEDS: MEMANTINE HCL 5 MG TABLET PO SCH ×2 (09:32→16:11)
[2020-07-21] MEDS: PANTOPRAZOLE 40 MG TABLET.DR PO SCH (09:50)
[2020-07-21] MEDS: SEVELAMER CARBONATE 800 MG POWD.PACK GT SCH ×3 (09:50→17:36)
[2020-07-21] MEDS ORDERED: EPOETIN ALFA (10,000 UNIT) 10,000 UNIT/ML VIAL IV ONE ×2 (12:00→19:30)
[2020-07-21] MEDS ORDERED: MINERAL OIL 133 ML (PYXIS) 1 EA ENEMA RC ONE (12:00)
[2020-07-21] MEDS ORDERED: BISACODYL SUPP (10 MG) 10 MG/SUPP.RECT SUPP.RECT RC PRN (12:00)
--- NOTE | 2020-07-21 13:00 | NUR ---
RN NOTE Oil enema given and patient was able to make 2 large BM brown and hard. Will continue with plan of care.
--- NOTE | 2020-07-21 14:00 | NUR ---
RN NOTE Unable to give epogen d/t no new lab draw for today. Patient is a hard stick and several lab techs have tried to draw. MD is aware and HD RN will draw when patient is receiving HD.
--- NOTE | 2020-07-21 15:55 | NUR ---
RN NOTE Epogen not administered d/t no Hgb level drawn today. Per lab techs, patient is a hard stick, unable to draw labs. several techs have attempted to draw, so far unsuccessful. MD is aware, pharmacist in charge owner aware. Will continue with plan of care.
--- NOTE | 2020-07-21 17:03 | NUR ---
Patient resides at [facility] (memory care) [phone], Address: [address] [facility], [place] [address]. Hx ESRD on HD MWF 12:15PM at [facility] [place] [phone]([facility] [place]).He utilized a walker with ambulation inside the facility, uses a wheelchair for outside mobility. Has no homehealth reported. Current dc plan is to return to [facility] Addendum: 07/21/20 at 1704 by SARAH CORDOBA RN Amended: Links added.
[2020-07-21 18:36] LABS: BASOPHILS # (AUTO) 0.1 /CMM (0.0-0.2); BASOPHILS % (AUTO) 2.2 % (0.0-2.0); EOSINOPHILS % (AUTO) 2.8 % (0.0-6.0); HEMATOCRIT 21 % (39-51); LYMPHOCYTES # (AUTO) 0.7 /CMM (0.8-4.8); LYMPHOCYTES % (AUTO) 10.7 % (20.0-44.0); MEAN CORPUSCULAR HGB CONC 31 g/dl (31.0-36.0); MEAN CORPUSCULAR VOLUME 92 fL (80-96); MONOCYTES # (AUTO) 0.7 /CMM (0.1-1.30); MONOCYTES % (AUTO) 10.5 % (2.0-12.0); NEUTROPHILS % (AUTO) 73.8 % (43.0-81.0); PLATELET COUNT (AUTO) 124 /CMM (150-450); RED BLOOD CELL COUNT(AUTO) 2.28 MIL/uL (4.5-6.0); WHITE BLOOD COUNT (AUTO) 6.8 K/uL (4.3-11.0)
[2020-07-21 18:43] LABS: HEMOGLOBIN 6.5 g/dL (13.5-17.5)
[2020-07-21 18:52] LABS: ALANINE AMINOTRANSFERASE 15 U/L (12-78); ALBUMIN 2.9 g/dL (3.4-5.0); ALKALINE PHOSPHATASE 79 U/L (46-116); ASPARTATE AMINOTRANSFERASE 12 U/L (15-37); BILIRUBIN,DIRECT 0.2 mg/dL (0.0-0.2); BILIRUBIN,TOTAL 0.4 mg/dL (0.2-1.0); CALCIUM, SERUM 8.7 mg/dL (8.5-10.1); CARBON DIOXIDE 31 mmol/L (21-32); CHLORIDE 100 mmol/L (98-107); CREATININE 4.9 mg/dL (0.6-1.3); GLUCOSE 130 mg/dL (74-106); MAGNESIUM 2.4 mg/dL (1.8-2.4); PHOSPHORUS 3.2 mg/dL (2.5-4.9); POTASSIUM 4.1 mmol/L (3.5-5.1); SODIUM SERUM 137 mmol/L (136-145); TOTAL PROTEIN, SERUM 6.2 g/dL (6.4-8.2); UREA NITROGEN, BLOOD 31 mg/dL (7-18)
[2020-07-21 19:02] LABS: CHOLESTEROL 75 mg/dL (<200); FERRITIN 154 ng/mL (8-388); HDL CHOLESTEROL 39 mg/dL (40-60); LDL 29 mg/dL (0-99); THYROID STIMULATING HORMONE 2.837 uIU/mL (0.358-3.74); TRIGLYCERIDES 74 mg/dL (30-150)
--- NOTE | 2020-07-21 19:13 | NUR ---
RN CLOSING NOTE Patient is currently receiving HD at this time. A/O x2-3, with periods of confusion. Tele monitor SR with PVCs 69. RCW perma-cath noted. left wrist #18g is clean and intact flushing well. Labs drawn around 1730 by HD RN Ria. Labs resulted and notified pharmacy to bring epogen when ready. Ok per MD to give epogen when Hgb results. Hgb dropped to 6.5. Notified [facility] of result. Pending response. Endorsed to gas scrubber operator for RENATA.
[2020-07-21 19:16] LABS: IRON, SERUM 23 ug/dl (50-175); TOTAL IRON BINDING CAPACITY 193 ug/dl (250-450)
--- NOTE | 2020-07-21 20:00 | NUR ---
NUTRITION WORKER NOTES RECEIVED ON HD TREATMENT IN PROGRESS.HD NURSE AT BEDSIDE.A/O X2-3,WITH EPISODE OF CONFUSION,BREATHING REGULAR,NOT IN ANY FORM OF DISTRESSO2 SAT 92% ON 2L/NC.CALL LIGHT IN REACH,NEEDS ANTICIPATED.
--- NOTE | 2020-07-21 20:23 | NUR ---
MS RN NOTES HEMOGLOBIN 6.5,DUE EPOGEN 10,000 UNITS GIVEN IV ORDERED
--- NOTE | 2020-07-21 20:30 | NUR ---
MS RN NOTES RECEIVED ORDER FROM HOSPITALIST ELGIN SETH,TO TRANSFUSE 1 UNIT PRBC FOR HGB 6.5,ROLDAN MADE AWARE.
--- NOTE | 2020-07-21 21:15 | NUR ---
MS RN NOTES REPORT GIVEN TO ROLDAN HOWELL FOR RENATA.
--- NOTE | 2020-07-21 21:22 | NUR ---
RECEIVED REPORTS FROM LYNDA JAVIER.
[2020-07-21] MEDS: TIMOLOL 0.5% SOLN OPHTH 5 ML BOTTLE LEFTEYE SCH (23:41)
[2020-07-21] MEDS: QUETIAPINE FUMARATE 25 MG TABLET PO SCH (23:41)
[2020-07-21] MEDS: PRAMIPEXOLE DI-HCL 0.25 MG TABLET PO SCH (23:41)
[2020-07-21] MEDS: DONEPEZIL 5 MG TABLET PO SCH (23:42)
[2020-07-22] VITALS (7 sets, daily range): BP systolic 140–154; BP diastolic 46–56
--- NOTE | 2020-07-22 | NUR ---
NO TUBE FEEDING RESIDUAL. Addendum: 07/22/20 at 0240 by ROLDAN ESTRADA RN WRONG PATIENT.
--- NOTE | 2020-07-22 | NUR ---
SCD'S PLACED ON BOTH LEGS.
--- NOTE | 2020-07-22 07:00 | NUR ---
MS RN CLOSING NOTES: PATIENT IN BED, AWAKE, A/O X2-3, FORGETFUL. NO S/S OF DISTRESS NOTED. NO COMPLAIN OF PAIN. CALL LIGHT WITHIN REACH. BED ALARM ON. BED IN LOWEST AND LOCKED POSITION. STILL NO BM YET.
--- NOTE | 2020-07-22 08:00 | NUR ---
m/s kid club attendant: initial assessment received pt in bed awake, alert to self only with confusion and disorientation to time, place, and situation. reality orientation provided prn. will continue to monitor.
[2020-07-22] MEDS: CHOLECALCIFEROL 1,000 UNIT TABLET (VIT D3) PO SCH (08:28)
[2020-07-22] MEDS: SIMVASTATIN 20 MG TABLET PO SCH (08:28)
[2020-07-22] MEDS: MEMANTINE HCL 5 MG TABLET PO SCH ×2 (08:28→17:53)
[2020-07-22] MEDS: SEVELAMER CARBONATE 800 MG POWD.PACK GT SCH ×3 (08:28→17:57)
[2020-07-22] MEDS: VIT B CMPLX 3/FA/VIT C/BIOTIN 1 TAB TABLET PO SCH (08:28)
[2020-07-22] MEDS: FAMOTIDINE (20 MG) 20 MG TABLET PO SCH (08:29)
[2020-07-22] MEDS: PANTOPRAZOLE 40 MG TABLET.DR PO SCH (08:29)
[2020-07-22] MEDS: CARVEDILOL 3.125 MG TABLET PO SCH ×2 (08:29→17:54)
[2020-07-22] MEDS: DOCUSATE SODIUM 100 MG CAPSULE PO SCH (08:29)
[2020-07-22] MEDS: AMLODIPINE BESYLATE 2.5 MG TABLET PO SCH (08:30)
[2020-07-22] MEDS: NEPRO VAN 237 ML CAN PO SCH (08:42)
[2020-07-22] MEDS: hydrALAZINE HCL 50 MG TABLET PO SCH ×3 (10:07→17:54)
[2020-07-22] MEDS: LISINOPRIL (20MG) 20 MG TABLET PO SCH ×2 (10:07→17:56)
--- NOTE | 2020-07-22 10:30 | NUR ---
m/s cable splicer: md visit seen and examined by dr. pisano with orders. orders acknowledged. pt for clay artisan consult, santosh (juanita) here and aware of consult.
--- NOTE | 2020-07-22 11:49 | NUR ---
m/s computational sciences professor: notes dr. pisano still here and made aware re: blood drawn refusal, per pt wants draw with hemodialysis treatment. per that's okay.
--- NOTE | 2020-07-22 14:00 | NUR ---
m/s central office repairer supervisor: notes in bed with eyes close. no s/s of distress noted. will continue to monitor.
[2020-07-22] MEDS: SOD FERRIC GLUC 125 MG in IV NS 0.9% 100 ML IV SCH (14:41)
[2020-07-22 16:48] LABS: BASOPHILS # (AUTO) 0.1 /CMM (0.0-0.2); BASOPHILS % (AUTO) 1.1 % (0.0-2.0); EOSINOPHILS % (AUTO) 4.5 % (0.0-6.0); HEMATOCRIT 25 % (39-51); LYMPHOCYTES # (AUTO) 1.2 /CMM (0.8-4.8); LYMPHOCYTES % (AUTO) 18.9 % (20.0-44.0); MEAN CORPUSCULAR HGB CONC 32 g/dl (31.0-36.0); MEAN CORPUSCULAR VOLUME 89 fL (80-96); MONOCYTES # (AUTO) 0.8 /CMM (0.1-1.30); MONOCYTES % (AUTO) 12.6 % (2.0-12.0); NEUTROPHILS # (AUTO) 3.9 /CMM (1.8-8.9); NEUTROPHILS % (AUTO) 62.9 % (43.0-81.0); PLATELET COUNT (AUTO) 106 /CMM (150-450); RED BLOOD CELL COUNT(AUTO) 2.85 MIL/uL (4.5-6.0); WHITE BLOOD COUNT (AUTO) 6.2 K/uL (4.3-11.0)
[2020-07-22 16:56] LABS: CALCIUM, SERUM 9.2 mg/dL (8.5-10.1); CARBON DIOXIDE 30 mmol/L (21-32); CHLORIDE 98 mmol/L (98-107); CREATININE 4.7 mg/dL (0.6-1.3); GLUCOSE 83 mg/dL (74-106); POTASSIUM 4.4 mmol/L (3.5-5.1); SODIUM SERUM 137 mmol/L (136-145); UREA NITROGEN, BLOOD 28 mg/dL (7-18)
--- NOTE | 2020-07-22 18:25 | NUR ---
m/s compliance intern: notes pt resting comfortable in bed. pt have no appetite despite encouragement and assisted by staff with meals. hob elevated. needs attended. no apparent distress noted. will continue to monitor.
--- NOTE | 2020-07-22 19:00 | NUR ---
m/s wood furniture assembler: notes report given to jie (franca) for continuity of care.
--- NOTE | 2020-07-22 19:18 | NUR ---
MS RN NOTES PATIENT IN BED, AWALE, ALERT AND ORIENTED X 2-3. BREATHING EVEN AND UNLABORED ON ROOM AIR. SHOWS NO SIGNS OF ACUTE RESPIRATORY DISTRESS. NO ACUTE PAIN. IV ON L WRIST 20G AND R CHEST WALL PERMACATH. DRESSINGS ARE CLEAN DRY AND INTACT. SHOWS NO SIGNS OF INFILTRATION, NO REDNESS. SAFETY PRECAUTIONS IN PLACE. BED IN LOWEST POSITION, LOCKED, AND CALL LIGHT KEPT WITHIN REACH. WILL CONTINUE TO MONITOR.
[2020-07-22] MEDS: QUETIAPINE FUMARATE 25 MG TABLET PO SCH (21:13)
[2020-07-22] MEDS: PRAMIPEXOLE DI-HCL 0.25 MG TABLET PO SCH (21:13)
[2020-07-22] MEDS: DONEPEZIL 5 MG TABLET PO SCH (21:14)
[2020-07-22] MEDS: TIMOLOL 0.5% SOLN OPHTH 5 ML BOTTLE LEFTEYE SCH (21:21)
--- NOTE | 2020-07-23 06:40 | NUR ---
MS RN NOTES PATIENT IN BED, ASLEEP, ALERT AND ORIENTED X 2-3. BREATHING EVEN AND UNLABORED ON ROOM AIR. SHOWS NO SIGNS OF ACUTE RESPIRATORY DISTRESS. NO ACUTE PAIN. IV ON L WRIST 20G AND R CHEST WALL PERMACATH. DRESSINGS ARE CLEAN DRY AND INTACT. SHOWS NO SIGNS OF INFILTRATION, NO REDNESS. ALL DUE MEDICATIONS GIVEN. ALL NEEDS ATTENDED TO. SAFETY PRECAUTIONS IN PLACE. BED IN LOWEST POSITION, LOCKED, AND CALL LIGHT KEPT WITHIN REACH. WILL ENDORSE TO ONCOMING NURSE.
--- NOTE | 2020-07-23 07:34 | NUR ---
MS/RN Opening note Patient received from night shift supervisor. A/O X4, appears comfortable at this time, denies any pain, discomfort or shortness of breath. Labs drawn this morning, will assess and monitor H&H. Safety measures in place, side rails X3 in upright position, brakes locked, bed in low setting. Call light within reach, will continue to monitor and ensure safety..
[2020-07-23 07:47] LABS: ALANINE AMINOTRANSFERASE 14 U/L (12-78); ALBUMIN 2.9 g/dL (3.4-5.0); ALKALINE PHOSPHATASE 87 U/L (46-116); ASPARTATE AMINOTRANSFERASE 16 U/L (15-37); BILIRUBIN,TOTAL 0.4 mg/dL (0.2-1.0); CALCIUM, SERUM 9.1 mg/dL (8.5-10.1); CARBON DIOXIDE 27 mmol/L (21-32); CHLORIDE 99 mmol/L (98-107); CREATININE 5.6 mg/dL (0.6-1.3); GLUCOSE 55 mg/dL (74-106); MAGNESIUM 2.8 mg/dL (1.8-2.4); POTASSIUM 4.6 mmol/L (3.5-5.1); SODIUM SERUM 134 mmol/L (136-145); TOTAL PROTEIN, SERUM 6.2 g/dL (6.4-8.2); UREA NITROGEN, BLOOD 32 mg/dL (7-18)
[2020-07-23 08:00] VITALS: BP 161/64
[2020-07-23 08:22] LABS: IMMUNOGLOBULIN A, SERUM 255 mg/dL (61-437); IMMUNOGLOBULIN G, SERUM 1065 mg/dL (603-1613); IMMUNOGLOBULIN M, SERUM 26 mg/dL (15-143)
[2020-07-23] MEDS: FAMOTIDINE (20 MG) 20 MG TABLET PO SCH (08:40)
[2020-07-23] MEDS: CHOLECALCIFEROL 1,000 UNIT TABLET (VIT D3) PO SCH (08:40)
[2020-07-23] MEDS: MEMANTINE HCL 5 MG TABLET PO SCH ×2 (08:40→17:05)
[2020-07-23] MEDS: DOCUSATE SODIUM 100 MG CAPSULE PO SCH (08:40)
[2020-07-23] MEDS: hydrALAZINE HCL 50 MG TABLET PO SCH ×3 (08:42→17:05)
[2020-07-23] MEDS: LISINOPRIL (20MG) 20 MG TABLET PO SCH ×2 (08:42→17:05)
[2020-07-23] MEDS: CARVEDILOL 3.125 MG TABLET PO SCH ×2 (08:43→17:06)
[2020-07-23] MEDS: AMLODIPINE BESYLATE 2.5 MG TABLET PO SCH (08:43)
--- NOTE | 2020-07-23 08:45 | NUR ---
MS/RN S/B Dr Valencia Seen by Dr Valencia - 2D echo ordered, daily dialysis until chest x-ray clear.
[2020-07-23] MEDS: PANTOPRAZOLE 40 MG TABLET.DR PO SCH (08:46)
[2020-07-23] MEDS: SEVELAMER CARBONATE 800 MG POWD.PACK GT SCH ×3 (08:46→17:04)
--- NOTE | 2020-07-23 09:08 | NUR ---
MS/RN Medications Morning medications administered as ordered.
--- NOTE | 2020-07-23 09:26 | NUR ---
MS/RN S/B Dr Kenyon Seen by DNP - continue to monitor H&h, follow up stool OB results. Discharge planning back to SNF.
[2020-07-23 09:40] LABS: BASOPHILS % (AUTO) 0.8 % (0.0-2.0); EOSINOPHILS % (AUTO) 5.4 % (0.0-6.0); HEMATOCRIT 25 % (39-51); HEMOGLOBIN 7.8 g/dL (13.5-17.5); LYMPHOCYTES # (AUTO) 0.9 /CMM (0.8-4.8); LYMPHOCYTES % (AUTO) 14.9 % (20.0-44.0); MEAN CORPUSCULAR HGB CONC 31 g/dl (31.0-36.0); MEAN CORPUSCULAR VOLUME 90 fL (80-96); MONOCYTES # (AUTO) 0.7 /CMM (0.1-1.30); MONOCYTES % (AUTO) 12.2 % (2.0-12.0); NEUTROPHILS % (AUTO) 66.7 % (43.0-81.0); PLATELET COUNT (AUTO) 103 /CMM (150-450); RED BLOOD CELL COUNT(AUTO) 2.78 MIL/uL (4.5-6.0)
[2020-07-23] MEDS: SIMVASTATIN 20 MG TABLET PO SCH (09:55)
[2020-07-23] MEDS: VIT B CMPLX 3/FA/VIT C/BIOTIN 1 TAB TABLET PO SCH (09:55)
[2020-07-23] MEDS: NEPRO VAN 237 ML CAN PO SCH (09:59)
[2020-07-23] MEDS: SOD FERRIC GLUC 125 MG in IV NS 0.9% 100 ML IV SCH (14:41)
--- NOTE | 2020-07-23 15:07 | NUR ---
MS/RN Ferrlecit Ferrlecit administered as ordered, bag #2 of 5.
[2020-07-23 15:38] LABS: OCCULT BLOOD STOOL NEGATIVE (NEGATIVE)
[2020-07-23 16:00] VITALS: BP 121/54
[2020-07-23 16:10] LABS: *ANA ANTI-CENTROMERE B AB <0.2 AI (0.0-0.9); *ANA ANTI-DNA(DS) AB, QN 1 IU/mL (0-9); *ANA ANTI-JO-1 <0.2 AI (0.0-0.9); *ANA ANTICHROMATIN ANTIBODY 1.9 AI (0.0-0.9); *ANA RNP ANTIBODIES 0.2 AI (0.0-0.9); *ANA SJOGREN'S ANTI-SS-A 0.2 AI (0.0-0.9); *ANA SJOGREN'S ANTI-SS-B <0.2 AI (0.0-0.9); *ANAANTI-SCLERODERMA-70 AB 1.3 AI (0.0-0.9); *ANASMITH AB <0.2 AI (0.0-0.9)
--- NOTE | 2020-07-23 17:41 | NUR ---
MS/guide cruise HDX treatment completed at bedside, one liter fluid removed. Vital signs remained stable throughout.
--- NOTE | 2020-07-23 18:04 | NUR ---
MS/RN End note Patient remains in stable condition. All medications administered ordered, no difficulty swallowing pills. Heplock to left wrist patent, flushing well with normal saline, no signs of infiltration seen. All questions and concerns addressed, will endorse to metal numerical control programmer.
--- NOTE | 2020-07-23 19:00 | NUR ---
RN MS OPENING NOTES RECEIVED PATIENT IN BED AWAKE ALERT AND ORIENTED X2-3 FORGETFUL, ABLE TO CARRY SIMPLE CONVERSATION, RESPIRATIONS EVEN AND UNLABORED WITH EQUAL RISE AND FALL OF CHEST, DENIES ANY PAIN OR DISCOMFORT AT THIS TIME, IV SITE TO LEFT WRIST HL NO SIGNS OF REDNESS, NO INFILTRATION, RCW PERMACATH IN PLACE, DRESSING IS C/D/I. ORIENTED TO STAFF AND CALL LIGHT AND KEPT WITHIN REACH, SAFETY PRECAUTIONS RENDERED, LOW BED AND LOCKED, ALL NEEDS ATTENDED AT THIS TIME, WILL CONTINUE TO MONITOR AND ATTEND TO NEEDS.
[2020-07-23 20:00] VITALS: BP 146/53
[2020-07-23] MEDS: DONEPEZIL 5 MG TABLET PO SCH (21:31)
[2020-07-23] MEDS: PRAMIPEXOLE DI-HCL 0.25 MG TABLET PO SCH (21:31)
[2020-07-23] MEDS: TIMOLOL 0.5% SOLN OPHTH 5 ML BOTTLE LEFTEYE SCH (21:31)
[2020-07-23] MEDS: QUETIAPINE FUMARATE 25 MG TABLET PO SCH (21:31)
[2020-07-24 06:12] LABS: BASOPHILS # (AUTO) 0.1 /CMM (0.0-0.2); BASOPHILS % (AUTO) 0.8 % (0.0-2.0); EOSINOPHILS % (AUTO) 5.4 % (0.0-6.0); HEMATOCRIT 26 % (39-51); HEMOGLOBIN 8.1 g/dL (13.5-17.5); LYMPHOCYTES % (AUTO) 15.1 % (20.0-44.0); MEAN CORPUSCULAR HGB CONC 31 g/dl (31.0-36.0); MEAN CORPUSCULAR VOLUME 92 fL (80-96); MONOCYTES # (AUTO) 0.9 /CMM (0.1-1.30); MONOCYTES % (AUTO) 13.2 % (2.0-12.0); NEUTROPHILS # (AUTO) 4.4 /CMM (1.8-8.9); NEUTROPHILS % (AUTO) 65.5 % (43.0-81.0); PLATELET COUNT (AUTO) 92 /CMM (150-450); RED BLOOD CELL COUNT(AUTO) 2.84 MIL/uL (4.5-6.0); WHITE BLOOD COUNT (AUTO) 6.7 K/uL (4.3-11.0)
--- NOTE | 2020-07-24 06:34 | NUR ---
RN MS CLOSING NOTES PATIENT IN BED AWAKE ALERT AND ORIENTED X2-3 FORGETFUL AT TIMES BUT ABLE TO CARRY SIMPLE CONVERSATION, RESPIRATIONS EVEN AND UNLABORED WITH EQUAL RISE AND FALL OF CHEST, DENIES ANY PAIN OR DISCOMFORT AT THIS TIME, UPON END OF SHIFT ASSESSMENT IV SITE TO LEFT WRIST NOTED LEAKING ATTEMPTED TO REMOVE AND OFFERED TO INSERT NEW IV HOWEVER PATIENT DID NOT WANT TO AT THIS TIME STATES CAN YOU DO THAT AT A LATER TIME, DESPITE EDUCATION, STATES ITS TOO EARLY. RCW PERMACATH IN PLACE, DRESSING IS C/D/I. CALL LIGHT KEPT WITHIN REACH, SAFETY PRECAUTIONS RENDERED, LOW BED AND LOCKED, ALL NEEDS ATTENDED AT THIS TIME, WILL CONTINUE TO MONITOR AND ATTEND TO NEEDS AND ENDORSE TO NEXT SHIFT.
[2020-07-24 06:37] LABS: CARBON DIOXIDE 27 mmol/L (21-32); CHLORIDE 96 mmol/L (98-107); CREATININE 5.1 mg/dL (0.6-1.3); GLUCOSE 74 mg/dL (74-106); POTASSIUM 4.5 mmol/L (3.5-5.1); SODIUM SERUM 131 mmol/L (136-145); UREA NITROGEN, BLOOD 26 mg/dL (7-18)
[2020-07-24 08:00] VITALS: BP 150/60
[2020-07-24] MEDS: CHOLECALCIFEROL 1,000 UNIT TABLET (VIT D3) PO SCH (08:51)
[2020-07-24] MEDS: MEMANTINE HCL 5 MG TABLET PO SCH ×2 (08:51→17:50)
[2020-07-24] MEDS: VIT B CMPLX 3/FA/VIT C/BIOTIN 1 TAB TABLET PO SCH (08:52)
[2020-07-24] MEDS: FAMOTIDINE (20 MG) 20 MG TABLET PO SCH (08:52)
[2020-07-24] MEDS: SIMVASTATIN 20 MG TABLET PO SCH (08:52)
[2020-07-24] MEDS: AMLODIPINE BESYLATE 2.5 MG TABLET PO SCH (08:52)
[2020-07-24] MEDS: hydrALAZINE HCL 50 MG TABLET PO SCH ×3 (08:53→17:44)
[2020-07-24] MEDS: LISINOPRIL (20MG) 20 MG TABLET PO SCH ×2 (08:53→17:44)
[2020-07-24] MEDS: CARVEDILOL 3.125 MG TABLET PO SCH ×2 (08:53→17:45)
[2020-07-24] MEDS: DOCUSATE SODIUM 100 MG CAPSULE PO SCH (08:55)
[2020-07-24] MEDS: NEPRO VAN 237 ML CAN PO SCH (08:55)
[2020-07-24] MEDS: PANTOPRAZOLE 40 MG TABLET.DR PO SCH (08:55)
[2020-07-24 09:08] LABS: BAND % (MANUAL) 1 % (0.0-5.0); EOSINOPHILS % (MANUAL) 5 % (0-4); LYMPHOCYTES % (MANUAL) 16 % (16-48); MONOCYTES % (MANUAL) 9 % (0-11.0); MYELOCYTES % 1 % (0-0); NEUTROPHILS % (MANUAL) 68 (42-76)
[2020-07-24] MEDS: SEVELAMER CARBONATE 800 MG POWD.PACK GT SCH ×3 (09:27→17:45)
--- NOTE | 2020-07-24 10:30 | NUR ---
MS/RN S/B Poncho Kenyon DNP Seen by DNP - patient for discharge back to SNF once cleared by nephrology.
[2020-07-24 12:00] VITALS: BP 126/63
--- NOTE | 2020-07-24 14:30 | NUR ---
MS/RN New heplock insertion New heplock inserted to right wrist, 22g.
--- NOTE | 2020-07-24 15:00 | NUR ---
MS/RN Krissit Katie hung as ordered, bag number 3 of 5.
[2020-07-24] MEDS: SOD FERRIC GLUC 125 MG in IV NS 0.9% 100 ML IV SCH (15:51)
[2020-07-24 16:00] VITALS: BP 141/55
--- NOTE | 2020-07-24 18:57 | NUR ---
MS/RN End note Patient remains in stable condition, for discharge back to SNF tomorrow.
--- NOTE | 2020-07-24 19:35 | NUR ---
MS RN OPENING NOTES RECEIVED PATIENT IN BED, ALERT AND ORIENTED X 2-3. VERBALLY RESPONSIVE AND ABLE TO FOLLOW DIRECTIONS. BREATHING REGULAR AND UNLABORED ON ROOM AIR. RIGHT WRIST G22 IV LINE INTACT AND PATENT, FLUSHING WELL WITH NO BLEEDING OR S/S OF INFILTRATION NOTED. RIGHT CHEST PERMACATH INTACT WITH NO ACTIVE BLEEDING SEEN, DRESSING CLEAN AND DRY. DENIES PAIN/DISCOMFORT AT THIS TIME. BED LOW AND LOCKED ON SEMI FOWLERS POSITION, CALL LIGHT IN REACH. WILL CONTINUE TO MONITOR.
[2020-07-24 20:00] VITALS: BP 146/54
[2020-07-24 20:48] VITALS: BP 146/54
[2020-07-24] MEDS: TIMOLOL 0.5% SOLN OPHTH 5 ML BOTTLE LEFTEYE SCH (21:18)
[2020-07-24] MEDS: DONEPEZIL 5 MG TABLET PO SCH (21:18)
[2020-07-24] MEDS: QUETIAPINE FUMARATE 25 MG TABLET PO SCH (21:18)
[2020-07-24] MEDS: PRAMIPEXOLE DI-HCL 0.25 MG TABLET PO SCH (21:18)
--- NOTE | 2020-07-25 06:20 | NUR ---
MS RN CLOSING NOTES PATIENT IN BED, ALERT AND ORIENTED X 2-3. AFEBRILE WITH NO S/S OF DISTRESS OBSERVED. RIGHT WRIST G22 IV LINE PATENT AND FLUSHING WELL. RIGHT CHEST PERMACATH INTACT WITH NO ACTIVE BLEEDING SEEN. NO REPORTS OF PAIN/DISCOMFORT AT THIS TIME. BED LOW AND LOCKED ON SEMI FOWLERS POSITION, CALL LIGHT IN REACH. WILL ENDORSE TO MORNING SHIFT FOR RENATA.
[2020-07-25] MEDS: PANTOPRAZOLE 40 MG TABLET.DR PO SCH (06:34)
--- NOTE | 2020-07-25 07:45 | NUR ---
RN OPENING NOTE; RECEIVED PT LYING IN BED. NO ACUTE DISTRESS NOTED. PT A+OX2-3 WITH PERIODS OF FORGETFULNESS. IV SL TO RIGHT FA FLUSHED, PATENT, NO S/SX OF INFILTRATE AND/OR INFECTION NOTED.PT CONTINENT OF URINE WITH URINAL AT BEDSIDE. RIGHT CHEST PRMACATH N OTED. BED IN LOW AND LOCKED POSITION WITH SIDE RAILS UPX 2 FOR SAFETY. ALL NEEDS ATTENDED TO.WILL CONT TO MONITOR PT FOR SAFETY.
[2020-07-25 08:00] VITALS: BP 130/60
[2020-07-25] MEDS ORDERED: MEMANTINE HCL 5 MG TABLET ONE (08:12)
[2020-07-25] MEDS: SEVELAMER CARBONATE 800 MG POWD.PACK GT SCH ×2 (08:23→13:28)
[2020-07-25] MEDS ORDERED: EPOETIN ALFA (10,000 UNIT) 10,000 UNIT/ML VIAL IV ONE ×2 (09:00→13:00)
[2020-07-25] MEDS: NEPRO VAN 237 ML CAN PO SCH (09:00)
--- NOTE | 2020-07-25 09:00 | NUR ---
RN NOTE: 0900 EPOGEN HELD. AWAITING RESULTS OF CBC.
[2020-07-25] MEDS: AMLODIPINE BESYLATE 2.5 MG TABLET PO SCH (09:31)
[2020-07-25] MEDS: FAMOTIDINE (20 MG) 20 MG TABLET PO SCH (09:31)
[2020-07-25] MEDS: VIT B CMPLX 3/FA/VIT C/BIOTIN 1 TAB TABLET PO SCH (09:31)
[2020-07-25] MEDS: DOCUSATE SODIUM 100 MG CAPSULE PO SCH (09:32)
[2020-07-25] MEDS: hydrALAZINE HCL 50 MG TABLET PO SCH ×2 (09:32→13:00)
[2020-07-25] MEDS: CARVEDILOL 3.125 MG TABLET PO SCH (09:33)
[2020-07-25] MEDS: SIMVASTATIN 20 MG TABLET PO SCH (09:33)
[2020-07-25] MEDS: LISINOPRIL (20MG) 20 MG TABLET PO SCH (09:33)
[2020-07-25] MEDS: CHOLECALCIFEROL 1,000 UNIT TABLET (VIT D3) PO SCH (09:33)
[2020-07-25] MEDS: MEMANTINE HCL 5 MG TABLET PO SCH (09:34)
[2020-07-25 11:46] LABS: BASOPHILS # (AUTO) 0.1 /CMM (0.0-0.2); BASOPHILS % (AUTO) 0.7 % (0.0-2.0); EOSINOPHILS % (AUTO) 3.7 % (0.0-6.0); HEMATOCRIT 25 % (39-51); HEMOGLOBIN 7.9 g/dL (13.5-17.5); LYMPHOCYTES # (AUTO) 0.4 /CMM (0.8-4.8); LYMPHOCYTES % (AUTO) 5.4 % (20.0-44.0); MEAN CORPUSCULAR HGB CONC 32 g/dl (31.0-36.0); MEAN CORPUSCULAR VOLUME 89 fL (80-96); MONOCYTES # (AUTO) 0.7 /CMM (0.1-1.30); NEUTROPHILS # (AUTO) 5.8 /CMM (1.8-8.9); NEUTROPHILS % (AUTO) 80.2 % (43.0-81.0); PLATELET COUNT (AUTO) 104 /CMM (150-450); RED BLOOD CELL COUNT(AUTO) 2.75 MIL/uL (4.5-6.0); WHITE BLOOD COUNT (AUTO) 7.2 K/uL (4.3-11.0)
--- NOTE | 2020-07-25 11:59 | NUR ---
PAROLE SUPERVISOR ORDER RECEIVED AN ORDER FROM DORINDA CARRENO FOR DISCHARGE SNF ([facility]). NOTED AND CARRIED OUT.
[2020-07-25 13:00] VITALS: BP 132/60
--- NOTE | 2020-07-25 13:30 | NUR ---
RN REPORT CALLED RN REPORT CALLED TO LASHELL HOWELL AT [facility]
--- NOTE | 2020-07-25 14:09 | NUR ---
RN NOTE IV TO RIGHT FA D/C'D
--- NOTE | 2020-07-25 15:00 | NUR ---
PIG HANDLER NOTE; PT DISCHARGED TO [facility]URSING [facility] IN STABLE CONDITION. VSS,AFEBRILE, DENIES PAIN. PT LEFT THE UNIT VIA GURNEY WITH EMS PRESENT.
[2020-07-26 07:07] LABS: *SPE A/G RATIO 1.1 (0.7-1.7); *SPE ALBUMIN 3.2 g/dL (2.9-4.4); *SPE ALPHA-1-GLOBULIN 0.3 g/dL (0.0-0.4); *SPE ALPHA-2-GLOBULIN 0.7 g/dL (0.4-1.0); *SPE BETA GLOBULIN 0.8 g/dL (0.7-1.3); *SPE GLOBULIN, TOTAL 2.9 g/dL (2.2-3.9); *SPE M-SPIKE Not Observed g/dL (Not Observed); *SPEGAMMA GLOBULIN 1.1 g/dL (0.4-1.8)
== END 2020-07-25 15:20 | DRG 811 ==
LOC: ER 13:49 → TELE 17:03 → MED 07-21 12:49
PROVIDERS: ADMIT Nurse Practitioner Acute Care; ATTEND Nurse Practitioner Acute Care
PROC: 5A1D70Z Performance of Urinary Filtration, Intermittent, Less than 6 Hours Per Day (ICD-10-PCS; 2020-07-20)
PROC: 30233N1 Transfusion of Nonautologous Red Blood Cells into Peripheral Vein, Percutaneous Approach (ICD-10-PCS; principal; 2020-07-21)
DX: D50.9 Iron deficiency anemia, unspecified (principal); N18.6 End stage renal disease; I21.4 Non-ST elevation (NSTEMI) myocardial infarction; G93.41 Metabolic encephalopathy; I13.2 Hypertensive heart and chronic kidney disease with heart failure and with stage 5 chronic kidney disease, or end stage renal disease; D61.818 Other pancytopenia; K21.9 Gastro-esophageal reflux disease without esophagitis; D64.9 Anemia, unspecified; H40.9 Unspecified glaucoma; D69.6 Thrombocytopenia, unspecified; Z99.2 Dependence on renal dialysis; F03.90 Unspecified dementia, unspecified severity, without behavioral disturbance, psychotic disturbance, mood disturbance, and anxiety; Z88.8 Allergy status to other drugs, medicaments and biological substances; Z79.899 Other long term (current) drug therapy; E11.22 Type 2 diabetes mellitus with diabetic chronic kidney disease; E78.5 Hyperlipidemia, unspecified; F29 Unspecified psychosis not due to a substance or known physiological condition; H54.62 Unqualified visual loss, left eye, normal vision right eye; I50.9 Heart failure, unspecified; Z88.5 Allergy status to narcotic agent; M34.9 Systemic sclerosis, unspecified; Z83.3 Family history of diabetes mellitus; Z82.49 Family history of ischemic heart disease and other diseases of the circulatory system
CPT/HCPCS: 36415; 71045-TC; 76700-TC; 80048-TC; 80053-TC; 80061-TC; 80076-TC; 82272-TC; 82728-TC; 82784; 82962-TC; 83540-TC; 83735-TC; 84100-TC; 84155; 84165; 84443-TC; 85025-TC; 85730-TC; 86140-TC; 86225; 86235; 86334; 86431-TC; 86706; 86803; 86850-TC; 87081-TC; 87340; 90935-TC; 93307-TC; 97110-TC; 97116-TC; 97530-TC; C9803; G0378; J0885; J2916; J7030; P9016-BL

== ENCOUNTER 2020-07-25 18:31 | Inpatient (IN) | payer BC ==
[~2020-07-25] VITALS: Ht 170.2 cm; Wt 65.3 kg
[~2020-07-25 18:31] MED LIST changes: +LISI-603 PO
[2020-07-25 19:17] LABS: BASOPHILS % (AUTO) 0.4 % (0.0-2.0); EOSINOPHILS % (AUTO) 1.8 % (0.0-6.0); HEMATOCRIT 27 % (39-51); HEMOGLOBIN 8.1 g/dL (13.5-17.5); LYMPHOCYTES # (AUTO) 0.6 /CMM (0.8-4.8); LYMPHOCYTES % (AUTO) 5.8 % (20.0-44.0); MEAN CORPUSCULAR HGB CONC 31 g/dl (31.0-36.0); MEAN CORPUSCULAR VOLUME 91 fL (80-96); MONOCYTES # (AUTO) 1.1 /CMM (0.1-1.30); MONOCYTES % (AUTO) 11.2 % (2.0-12.0); NEUTROPHILS # (AUTO) 8.1 /CMM (1.8-8.9); NEUTROPHILS % (AUTO) 80.8 % (43.0-81.0); PLATELET COUNT (AUTO) 100 /CMM (150-450); RED BLOOD CELL COUNT(AUTO) 2.91 MIL/uL (4.5-6.0)
--- NOTE | 2020-07-25 19:59 | NUR ---
BIBRA FROM SNF TO ER BED 6. AAOX4. SOB, NOTED WHEEZING RECEIVED ON NON REBREATHER MASK NOTED AT 100%. TITRATED DOWN TO NC @ 4/LPM SATTING @ 99%. BROUGHT IN FOR SOB. PT WAS REPORTED WITH O2 SAT OF 85% ON RA. PT IS ON DIALYSIS WITH ACCESS ON THE RIGHT UPPER CHEST. WAS AT THE BEDSIDE FOR EVAL. ORDERS RECEIVED, NOTED AND CARRIED OUT. IV LINE OBTAINED ON THE R HAND 22G. BLOOD DRAWN AND GIVEN TO WOOL BRUSHER AT BEDSIDE. COVID SWABS DONE AND SENT TO LAB.
--- NOTE | 2020-07-25 20:00 | NUR ---
Call from lab. Rapid Covid positive.
[2020-07-25] MEDS ORDERED: DEXAMETHASONE SOD PHOSPHATE 10 MG/ML VIAL IV ONE (20:30)
[2020-07-25] MEDS ORDERED: CEFEPIME 1 GM in IV D5W 50 ML IV ONE (20:30)
[2020-07-25] MEDS ORDERED: VANCOMYCIN 1 GM in IV D5W 250 ML IV ONE (20:30)
[2020-07-25 20:38] LABS: CALCIUM, SERUM 9.6 mg/dL (8.5-10.1); CARBON DIOXIDE 25 mmol/L (21-32); CHLORIDE 95 mmol/L (98-107); CREATININE 5.2 mg/dL (0.6-1.3); GLUCOSE 122 mg/dL (74-106); POTASSIUM 5.4 mmol/L (3.5-5.1); SODIUM SERUM 132 mmol/L (136-145); UREA NITROGEN, BLOOD 32 mg/dL (7-18)
[2020-07-25] MEDS ORDERED: DEXAMETHASONE SOD PHOSPHATE 10 MG/ML VIAL ONE (20:39)
[2020-07-25] MEDS ORDERED: VANCOMYCIN 1 GM VIAL ONE (20:39)
[2020-07-25] MEDS ORDERED: CEFEPIME 1 GM VIAL ONE (20:39)
[2020-07-25 20:44] LABS: ALANINE AMINOTRANSFERASE 15 U/L (12-78); ALBUMIN 3.5 g/dL (3.4-5.0); ALKALINE PHOSPHATASE 104 U/L (46-116); ASPARTATE AMINOTRANSFERASE 18 U/L (15-37); BILIRUBIN,DIRECT 0.2 mg/dL (0.0-0.2); BILIRUBIN,TOTAL 0.8 mg/dL (0.2-1.0); TOTAL PROTEIN, SERUM 7.2 g/dL (6.4-8.2)
[2020-07-25] MEDS ORDERED: INSULIN REGULAR, HUMAN 100 UNIT/ML 10 ML VIAL IV ONE (21:00)
[2020-07-25] MEDS ORDERED: DEXTROSE 50%-WATER 50 ML DISP.SYRIN IVP ONE (21:00)
[2020-07-25] MEDS ORDERED: INSULIN REGULAR, HUMAN 100 UNIT/ML 10 ML VIAL ONE (21:01)
[2020-07-25] MEDS ORDERED: DEXTROSE 50%-WATER 50 ML DISP.SYRIN ONE (21:01)
--- NOTE | 2020-07-25 21:15 | NUR ---
Note kirk in ED - 07/25/20 at 2200 by ODETTE REPORT GIVEN TO LYNDA WALLACE FOR RENATA. PT IS TRANSPORTED TO [facility] WITH EMT AND RN AT BEDSIDE W. ACLS PROTOCOL. NAD NOTED DURING TRANSPORT.
--- NOTE | 2020-07-25 21:20 | NUR ---
PT DIDNOT RECEIVED FLUID CHALLENGED D/T PULMONARY CONGESTION
[2020-07-25] MEDS ORDERED: HYDROCODONE/APAP 5/325MG TABLET PO PRN (21:30)
[2020-07-25] MEDS ORDERED: MAGNESIUM HYDROXIDE 30 ML UDC PO PRN ×2 (21:30)
[2020-07-25] MEDS ORDERED: NITROGLYCERIN 0.4 MG/TAB BOTTLE SL PRN (21:30)
[2020-07-25] MEDS: CARVEDILOL 3.125 MG TABLET PO SCH (21:30)
[2020-07-25] MEDS ORDERED: ACETAMINOPHEN 325 MG TABLET PO PRN ×2 (21:30)
[2020-07-25] MEDS ORDERED: MAG HYDROX/AL HYDROX/SIMETH 30 ML UDC PO PRN (21:30)
[2020-07-25] MEDS ORDERED: hydrALAZINE HCL IV 20 MG VIAL IV PRN (21:30)
[2020-07-25] MEDS ORDERED: Z GUARD REMEDY 2 OZ OINT TP PRN (21:30)
[2020-07-25] MEDS ORDERED: ONDANSETRON HCL/PF 4 MG/2 ML VIAL IVP PRN (21:30)
--- NOTE | 2020-07-25 21:30 | NUR ---
REPORT GIVEN TO LYNDA WALLACE FOR RENATA. PT IS TRANSPORTED TO UNIT ON [address] WITH EMT AND RN AT BEDSIDE W. ACLS PROTOCOL. NAD NOTED DURING TRANSPORT.
[2020-07-25 21:35] VITALS: BP 100/70
--- NOTE | 2020-07-25 21:35 | NUR ---
ADMITTING NOTE ADMITTED PATIENT FROM ER TO ROOM 117-2 VIA GURNEY. PATIENT IS ALERT AND ORIENTED X3, ABLE TO VERBALIZE NEEDS. ON O2 4LPM VIA NASAL CANNULA, O2 SAT 96%. PUT ON TELE MONITOR, SR 70'S. HEAD TO TOE ASSESSMENT DONE, WITH RIGHT ARM DISCOLORATION AND REDNESS ON COCCYX. WITH IV ON RIGHT HAND #22 INTACT AND PATENT. BED LOCKED AND IN LOWEST POSITION. SIDE RAILS UP X2. CALL LIGHT WITHIN REACH. SAFETY MEASURES IMPLEMENTED. WILL CONTINUE TO MONITOR.
[2020-07-25] MEDS ORDERED: LOPERAMIDE HCL (2 MG CAP) 2 MG CAPSULE PO PRN (22:30)
[2020-07-25] MEDS: DONEPEZIL 5 MG TABLET PO SCH (22:34)
[2020-07-25] MEDS: PRAMIPEXOLE DI-HCL 0.25 MG TABLET PO SCH (22:34)
[2020-07-25] MEDS: HEPARIN SODIUM, PORCINE 5000 UNITS/1 ML VIAL SQ SCH (22:37)
[2020-07-26] VITALS: BP 120/60
[2020-07-26 04:00] VITALS: BP 148/60
--- NOTE | 2020-07-26 07:11 | NUR ---
RN NOTES PATIENT IS ALERT AND ORIENTED X3, ABLE TO VERBALIZE NEEDS. ON O2 4LPM VIA NASAL CANNULA, O2 SAT 95%. ON TELE MONITOR, SR 70'S. BED LOCKED AND IN LOWEST POSITION. SIDE RAILS UP X2. CALL LIGHT WITHIN REACH. SAFETY MEASURES IMPLEMENTED. WILL ENDORSE TO NEXT SHIFT.
[2020-07-26 08:00] VITALS: BP 165/63
--- NOTE | 2020-07-26 08:05 | NUR ---
CHILLER OPERATOR OPENING NOTES RECEIVED PATIENT IN BED, ASLEEP. PATIENT ON OXYGEN THERAPY AT 4 LPM VIA NASAL CANNULA; BREATHING IS EVEN; SATURATING AT 98%. NO S/S OF PAIN SUCH MOANING, FACIAL GRIMACING OR GUARDING AT THIS TIME. R HAND IV ACCESS G # 22 PRESENT AND INTACT. SAFETY PRECAUTIONS IN PLACE, BED IN LOW POSITION AND LOCKED, RAILS UP X2, CALL LIGHT WITHIN REACH. WILL CONTINUE TO MONITOR PATIENT.
[2020-07-26] MEDS: DEXAMETHASONE SOD PHOSPHATE 10 MG/ML VIAL IV SCH ×2 (09:00→12:07)
[2020-07-26] MEDS: HEPARIN SODIUM, PORCINE 5000 UNITS/1 ML VIAL SQ SCH ×2 (09:00→20:13)
--- NOTE | 2020-07-26 10:00 | NUR ---
PT NOT GIVEN IV DECADRON, PT PREVIOUSLY REMOVED IV ACCESS, AWAITING MIDLINE PLACEMENT.
--- NOTE | 2020-07-26 10:10 | NUR ---
ELECTRICAL SYSTEMS ENGINEER NOTES PATIENT GIVEN TO LYNDA FERRARO FOR CONTINUITY OF CARE. REPORT GIVEN
[2020-07-26 12:00] VITALS: BP 130/52
[2020-07-26] MEDS: FAMOTIDINE (20 MG) 20 MG TABLET PO SCH (12:05)
[2020-07-26] MEDS: CHOLECALCIFEROL 1,000 UNIT TABLET (VIT D3) PO SCH (12:05)
[2020-07-26] MEDS: MEMANTINE HCL 5 MG TABLET PO SCH ×2 (12:05→17:43)
[2020-07-26] MEDS: SIMVASTATIN 20 MG TABLET PO SCH (12:05)
[2020-07-26] MEDS: SEVELAMER CARBONATE 800 MG TABLET PO SCH ×3 (12:05→17:44)
[2020-07-26] MEDS: hydrALAZINE HCL 50 MG TABLET PO SCH ×3 (12:06→17:42)
[2020-07-26] MEDS: TIMOLOL 0.5% SOLN OPHTH 5 ML BOTTLE LEFTEYE SCH ×2 (12:07→14:14)
[2020-07-26] MEDS: DOCUSATE SODIUM 100 MG CAPSULE PO SCH (12:07)
[2020-07-26] MEDS: AMLODIPINE BESYLATE 2.5 MG TABLET PO SCH (12:09)
[2020-07-26] MEDS: LISINOPRIL (20MG) 20 MG TABLET PO SCH ×2 (12:09→17:44)
[2020-07-26] MEDS: CARVEDILOL 3.125 MG TABLET PO SCH ×2 (12:16→17:43)
[2020-07-26] MEDS: NEPRO VAN 237 ML CAN PO SCH (12:25)
--- NOTE | 2020-07-26 13:15 | NUR ---
PATIENT POSITIVE COVID PCR RELAYED TO
[2020-07-26] MEDS: VIT B CMPLX 3/FA/VIT C/BIOTIN 1 TAB TABLET PO SCH (14:14)
[2020-07-26 16:00] VITALS: BP 130/52
[2020-07-26 20:00] VITALS: BP 140/66
--- NOTE | 2020-07-26 20:02 | NUR ---
PT REMAINS IN BED ALERT AND ORIENTED X 3. PT ON 4L O2, 96-99% NO RESPIRATORY DISTRESS OR SOB. PT ON MONITOR SHOWING SR. PT HAD HD SESSION TODAY, 2L REMOVED. PT ON RENAL DIET, WITH FEEDER ASSISTANCE NEEDED. MIDLINE SUCCESSFULLY STARTED ON RIGHT UPPER ARM, CURRENTLY SALINE LOCKED. BED IN LOCKED LOWEST POSITION, CALL LIGHT WITHIN REACH, ALL SAFETY MEASURES IN PLACE. REPORT GIVEN TO NADEEM FOR RENATA
[2020-07-26] MEDS: CEFTRIAXONE 1 G in IV D5W 50 ML IV SCH (20:12)
[2020-07-26] MEDS: PRAMIPEXOLE DI-HCL 0.25 MG TABLET PO SCH (21:30)
[2020-07-26] MEDS: DONEPEZIL 5 MG TABLET PO SCH (21:30)
[2020-07-26 21:40] LABS: BASOPHILS % (AUTO) 0.4 % (0.0-2.0); EOSINOPHILS % (AUTO) 0.1 % (0.0-6.0); HEMATOCRIT 22 % (39-51); HEMOGLOBIN 7.1 g/dL (13.5-17.5); LYMPHOCYTES # (AUTO) 0.7 /CMM (0.8-4.8); LYMPHOCYTES % (AUTO) 8.9 % (20.0-44.0); MEAN CORPUSCULAR HGB CONC 32 g/dl (31.0-36.0); MEAN CORPUSCULAR VOLUME 90 fL (80-96); MONOCYTES # (AUTO) 1.1 /CMM (0.1-1.30); MONOCYTES % (AUTO) 13.5 % (2.0-12.0); NEUTROPHILS # (AUTO) 6.3 /CMM (1.8-8.9); NEUTROPHILS % (AUTO) 77.1 % (43.0-81.0); PLATELET COUNT (AUTO) 98 /CMM (150-450); RED BLOOD CELL COUNT(AUTO) 2.49 MIL/uL (4.5-6.0); WHITE BLOOD COUNT (AUTO) 8.1 K/uL (4.3-11.0)
[2020-07-26 21:56] LABS: CALCIUM, SERUM 8.7 mg/dL (8.5-10.1); CARBON DIOXIDE 31 mmol/L (21-32); CHLORIDE 99 mmol/L (98-107); CREATININE 5.2 mg/dL (0.6-1.3); GLUCOSE 102 mg/dL (74-106); MAGNESIUM 2.4 mg/dL (1.8-2.4); PHOSPHORUS 3.6 mg/dL (2.5-4.9); POTASSIUM 4.5 mmol/L (3.5-5.1); SODIUM SERUM 136 mmol/L (136-145); UREA NITROGEN, BLOOD 36 mg/dL (7-18)
[2020-07-26] MEDS ORDERED: PYRIDOXINE HCL 50 MG TABLET PO SCH (22:00)
--- NOTE | 2020-07-26 22:30 | NUR ---
TEXTED ERLINDA REGARDING THE 1999 LAB DRAW THAT ARE ABNORMAL HBG IS 7.1 SHE GAVE ORDERD FOR DUPLEX RT LT UPPER AND LOWER TO R/O DVT ORDER PLACED
[2020-07-27] VITALS (29 sets, daily range): BP systolic 65–159; BP diastolic 23–65
--- NOTE | 2020-07-27 05:55 | NUR ---
ENDING NOTES: HE IS ALERT AND ORIENTATED X3 FORGETFUL. ATTEMPTED TO AMBULATE TO THE BATHROOM UNSUCCESSFUL CAN STAND PLACED BACK TO BED AND BED EDOUARD GIVEN GOOD BROWN FORMED STOOL. NO SOB AFEBRILE RIGHT ARM AV SHUNT Addendum: 07/27/20 at 0603 by NADEEM SMITH RN ENDING NOTES: ALERT AND ORIENTATED X3 FORGETFUL PLEASENT SPEECH CLEAR WILL LET HIS NEED BE KNOWN GOOD BM THIS 12 HOURS FORMED BROWN. UNABLE TO AMBULATE AT ALL BARELY WAS ABLE TO STAND. AV SHUNT CHEST WALL DRESSING CDI MIDLINE RIGHT UPPER ARM CDI AND PATENT. LABS WERE DRAWN AT 1999 AND THE HBG WAS 7.1 FROM 8.1 MADE A CALL TO GERARDO RANDOLPH AND SHE STATED THIS WAS D/T RENAL AND DIALAYSIS BUT SHE DID ORDER DUPLEX STUDY FOR UPPER AND LOWER EXT TO R/O DVT NOT LEFT ARM (OLD AV SHUNT) 2 + SWELLING ARM WARM RADIAL PULSE PALPABLE AND MOVEMENT PRESENT HAND TRIAL EXAMINER STRONG
--- NOTE | 2020-07-27 08:28 | NUR ---
PT RECEIVED IN BED, ALERT AND ORIENTED X 4. PT ON 4L NASAL CANNULA O2 SAT 94%. PT IS BEDRIDDEN, USES BED EDOUARD. PT SKIN INTACT. PT ON RENAL DIET, NEEDS ASSISTANCE WITH FEEDER. 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 PT LABS YESTERDAY, NO NEW ORDERS PER PREVIOUS RN AND PARCEL POST ORDER CLERK ERLINDA. BED IN LOCKED LOWEST POSITION, CALL LIGHT WITHIN REACH, ALL SAFETY MEASURES IN PLACE. WILL CONTINUE TO MONITOR CLOSELY
[2020-07-27] MEDS: MEMANTINE HCL 5 MG TABLET PO SCH ×2 (08:44→17:00)
[2020-07-27] MEDS: FAMOTIDINE (20 MG) 20 MG TABLET PO SCH (08:44)
[2020-07-27] MEDS: SEVELAMER CARBONATE 800 MG TABLET PO SCH ×3 (08:44→18:00)
[2020-07-27] MEDS: CHOLECALCIFEROL 1,000 UNIT TABLET (VIT D3) PO SCH (08:44)
[2020-07-27] MEDS: DOCUSATE SODIUM 100 MG CAPSULE PO SCH (08:45)
[2020-07-27] MEDS: VIT B CMPLX 3/FA/VIT C/BIOTIN 1 TAB TABLET PO SCH (08:45)
[2020-07-27] MEDS: SIMVASTATIN 20 MG TABLET PO SCH (08:45)
[2020-07-27] MEDS: DEXAMETHASONE SOD PHOSPHATE 10 MG/ML VIAL IV SCH (08:46)
[2020-07-27] MEDS: CARVEDILOL 3.125 MG TABLET PO SCH ×2 (08:49→17:00)
[2020-07-27] MEDS: hydrALAZINE HCL 50 MG TABLET PO SCH ×3 (08:49→17:00)
[2020-07-27] MEDS: LISINOPRIL (20MG) 20 MG TABLET PO SCH ×2 (08:49→17:00)
[2020-07-27] MEDS: TIMOLOL 0.5% SOLN OPHTH 5 ML BOTTLE LEFTEYE SCH (08:50)
[2020-07-27] MEDS: AMLODIPINE BESYLATE 2.5 MG TABLET PO SCH (08:50)
[2020-07-27] MEDS: NEPRO VAN 237 ML CAN PO SCH (08:50)
[2020-07-27] MEDS: HEPARIN SODIUM, PORCINE 5000 UNITS/1 ML VIAL SQ SCH (09:00)
--- NOTE | 2020-07-27 09:05 | NUR ---
HEPARIN NON-ADMIN, PREVIOUS LABS H/H 7.1, 22, PLT 98
--- NOTE | 2020-07-27 12:00 | NUR ---
PT MORNING TEMPERATURE 100.5, EXTRA BLANKET REMOVED. RECHECKED AT 1200 AT 100.8. COOLING MEASURES IMPLEMENTED
--- NOTE | 2020-07-27 18:26 | NUR ---
RECEIVED PT FROM ОЛЕГ POST RAPID RESPONSE. PT APPEARS OBTUNDED, AND WITH SHORTNESS OF BREATH. ON MECHANICAL VENTILATION WITH BILATERAL BREATH SOUNDS NOTED. PT NOTED WITH PULSE. ADMISSION CARE RENDERED. WILL CONTINUE TO MONITOR.
--- NOTE | 2020-07-27 18:36 | NUR ---
PT FOUND PULSELESS, CODE BLUE INITIATED.
[2020-07-27 19:00] LABS: ABG BASE EXCESS -2.5 mmol/L; ABG OXYGEN SATURATION 99.5 % (92.0-98.5); ABG PCO2 33.1 mmHg (35.0-45.0); ABG PH 7.431 (7.350-7.450); ABG PO2 382.3 mmHg (75.0-100.0); AaDO2 297.6 mmHg; COHb 2.1 % (0.5-1.5); MetHb 0.3 % (0.0-1.5); O2Hb 97.1 % (94.0-97.0); PEEP,BG 5 cm H2O; SITE, ABG Right Femoral; VT, ABG 500 mL
[2020-07-27] MEDS ORDERED: IV NS 0.9% 1,000 ML BAG MC ONE (19:00)
[2020-07-27 19:02] LABS: BASOPHILS # (AUTO) 0.1 /CMM (0.0-0.2); HEMATOCRIT 21 % (39-51); LYMPHOCYTES # (AUTO) 2.9 /CMM (0.8-4.8); LYMPHOCYTES % (AUTO) 24.3 % (20.0-44.0); MEAN CORPUSCULAR HGB CONC 31 g/dl (31.0-36.0); MEAN CORPUSCULAR VOLUME 92 fL (80-96); MONOCYTES # (AUTO) 0.2 /CMM (0.1-1.30); MONOCYTES % (AUTO) 1.4 % (2.0-12.0); NEUTROPHILS # (AUTO) 8.7 /CMM (1.8-8.9); NEUTROPHILS % (AUTO) 73.3 % (43.0-81.0); PLATELET COUNT (AUTO) 86 /CMM (150-450); RED BLOOD CELL COUNT(AUTO) 2.32 MIL/uL (4.5-6.0); WHITE BLOOD COUNT (AUTO) 11.9 K/uL (4.3-11.0)
--- NOTE | 2020-07-27 19:02 | NUR ---
RT NOTE Code blue called. RT responds ACLS protocol started and pt intubated via 7.5 Ett @ 24cm. Positive color change noted and bilateral breath sounds noted pt placed on ventilator on ordered settings: AC 26,500,100%+5. ABG done and settings titrated to AC 30, 500, 100% +5 per Eccille order. Pt transferred to ICU 252. Pt coded ACLS protocol started. Pulse was regained. Repeat ABG done and settings titrated to AC 20, 500, 60%, +5 per MD order. Report given to nightshift RT.
[2020-07-27 19:07] LABS: HEMOGLOBIN 6.7 g/dL (13.5-17.5)
[2020-07-27 19:08] LABS: CARBON DIOXIDE 27 mmol/L (21-32); CHLORIDE 101 mmol/L (98-107); CREATININE 7.1 mg/dL (0.6-1.3); GLUCOSE 140 mg/dL (74-106); POTASSIUM 5.9 mmol/L (3.5-5.1); SODIUM SERUM 147 mmol/L (136-145); UREA NITROGEN, BLOOD 58 mg/dL (7-18)
[2020-07-27 19:22] LABS: ALANINE AMINOTRANSFERASE 186 U/L (12-78); ALBUMIN 2.3 g/dL (3.4-5.0); ALKALINE PHOSPHATASE 76 U/L (46-116); ASPARTATE AMINOTRANSFERASE 272 U/L (15-37); BILIRUBIN,TOTAL 0.5 mg/dL (0.2-1.0); MAGNESIUM 2.7 mg/dL (1.8-2.4); TOTAL PROTEIN, SERUM 5.3 g/dL (6.4-8.2)
[2020-07-27] MEDS: NOREPINEPHRINE 8 MG in IV NS 0.9% 242 ML IV PRN ×2 (19:24→22:59)
[2020-07-27 19:52] LABS: PHOSPHORUS 9.6 mg/dL (2.5-4.9)
--- NOTE | 2020-07-27 19:52 | NUR ---
RT NOTES Pt received orally intubate secured 24cm at the lip line on [facility] vent with md ordered AC mode settings. No signs of resp distress at this time. Airway patent and secured. EMANATIONS ANALYSIS TECHNICIAN done. Pt suctioned. Alarms set and audible. Vent plugged into red outlet. Will cont to monitor closely. Addendum: 07/27/20 at 1953 by DONALD LYN RT Amended: Links added.
[2020-07-27 20:07] LABS: CREATINE KINASE, TOTAL 88 U/L (39-308)
--- NOTE | 2020-07-27 20:35 | NUR ---
RN NOTES RECEIVED PATIENT HEMODYNAMICALLY UNSTABLE ON HYPOTHERMIA PROTOCOL. S/P INTUBATED WIT ETT7.5/23 CM AT LIPLINE WITH VENT SETTING AC 20 TV 500 FIO2 100% PEEP 5 SATURATION 94%. PATIENT IS +COVID. ISOLATION PRECAUTION STRICTLY IMPLEMENTED. PT IS OBTUNDED. NON RESPONSIVE. IV SITE ON DANI MIDLINE RUNNING W/ COLD NS BOLUS AND LEVOPHED @ 0.3 MCG/KG/MIN TITRATED PROTOCOL ORDER. PATIENT HAS LARGE LOOSE BROWN AND BLOODY STOOL. HYPOTHERMIA THERAPY INITIATED. KEPT PT CLEAN AND DRY. COOLING BLANKET PLACED, COLD LAVAGE DONE. LABS ORDERED BY AM SHIFT. HGB 6.7 LACTIC ACID 15.7 AND PHOS [address] TAI. KEPT PT CLEAN AND DRY. WILL CLOSELY MONITOR.
--- NOTE | 2020-07-27 20:45 | NUR ---
RN NOTES DR. TAI CALLED AND FOLLOW UP THE PATIENT STATUS. DNP UPDATED WITH NEW ORDER TO GIVE 1 UNIT PRBC FOR HGB 6.7
[2020-07-27 20:48] LABS: BAND % (MANUAL) 4 % (0.0-5.0); LYMPHOCYTES % (MANUAL) 22 % (16-48); MONOCYTES % (MANUAL) 2 % (0-11.0); NEUTROPHILS % (MANUAL) 72 (42-76)
[2020-07-27 21:25] LABS: BASOPHILS # (AUTO) 0.2 /CMM (0.0-0.2); BASOPHILS % (AUTO) 1.1 % (0.0-2.0); EOSINOPHILS % (AUTO) 2.5 % (0.0-6.0); HEMATOCRIT 23 % (39-51); LYMPHOCYTES # (AUTO) 0.5 /CMM (0.8-4.8); LYMPHOCYTES % (AUTO) 2.7 % (20.0-44.0); MEAN CORPUSCULAR HGB CONC 30 g/dl (31.0-36.0); MEAN CORPUSCULAR VOLUME 92 fL (80-96); MONOCYTES # (AUTO) 0.4 /CMM (0.1-1.30); MONOCYTES % (AUTO) 2.1 % (2.0-12.0); NEUTROPHILS # (AUTO) 15.6 /CMM (1.8-8.9); NEUTROPHILS % (AUTO) 91.6 % (43.0-81.0); PLATELET COUNT (AUTO) 103 /CMM (150-450); RED BLOOD CELL COUNT(AUTO) 2.49 MIL/uL (4.5-6.0)
--- NOTE | 2020-07-27 21:30 | NUR ---
RN NOTES DAUGHTER CORA LOWERY" CALLED VIA PHONE AND GIVE UPDATE TO PATIENT STATUS. CONSENT GIVEN FOR BLOOD TRANSFUSION AND PICC LINE INSERTION WITNESSED BY KENNY HOWELL.
--- NOTE | 2020-07-27 21:35 | NUR ---
RN NOTES INFORMED MD THAT PATIENT NEEDS PICC LINE DUE TO PRESSOR WAS STARTED AND NEEDS MORE LINES FOR IV MULTIPLE IV MEDS. PER ZAIRE TO USE DIALYSIS CATH. FOR NOW UNTIL THE MORNING SO HE CAN PUT A CENTRAL LINE. NOTED.
[2020-07-27 21:37] LABS: CALCIUM, SERUM 7.8 mg/dL (8.5-10.1); CARBON DIOXIDE 23 mmol/L (21-32); CHLORIDE 102 mmol/L (98-107); CREATININE 7.2 mg/dL (0.6-1.3); GLUCOSE 148 mg/dL (74-106); SODIUM SERUM 144 mmol/L (136-145); UREA NITROGEN, BLOOD 63 mg/dL (7-18)
[2020-07-27] MEDS: CEFTRIAXONE 1 G in IV D5W 50 ML IV SCH (21:55)
[2020-07-27 22:00] LABS: MAGNESIUM 2.6 mg/dL (1.8-2.4); PHOSPHORUS 7.6 mg/dL (2.5-4.9)
[2020-07-27] MEDS: SEROQUEL 50 MG PO SCH (22:00)
[2020-07-27] MEDS: PRAMIPEXOLE DI-HCL 0.25 MG TABLET PO SCH (22:00)
[2020-07-27 22:03] LABS: POTASSIUM 6.2 mmol/L (3.5-5.1)
[2020-07-27] MEDS: DONEPEZIL 5 MG TABLET PO SCH (22:26)
[2020-07-27] MEDS ORDERED: LORAZEPAM INJ 2 MG/ML VIAL IVP PRN (22:30)
[2020-07-27] MEDS ORDERED: ASPIRIN 300 MG/SUPP.RECT RC ONE ×2 (22:30→23:00)
[2020-07-27] MEDS ORDERED: NOREPINEPHRINE 4 MG/4 ML AMPUL IV ONE (22:53)
[2020-07-27] MEDS ORDERED: IV NS 0.9% 1,000 ML IV ONE (23:30)
--- NOTE | 2020-07-27 23:40 | NUR ---
RN NOTES BLOOD TRANSFUSION STARTED. ITITAL HGB AFTER CODE WAS 6.7 AND WENT UP TO 7 BEFORE BT STARTED. VSS ,CONTINUE WITH LEVOPHED TITRATED ORDERED PROTOCOL.
--- NOTE | 2020-07-27 23:45 | NUR ---
RN NOTES 1 UNIT PRBC STARTED TO ADMINISTER. PATIENT VSS STABLE WITH LEVOPHED RUNNING.
[2020-07-27 23:47] LABS: BILIRUBIN,DIRECT 0.5 mg/dL (0.0-0.2)
[2020-07-28] VITALS (90 sets, daily range): BP systolic 84–155; BP diastolic 28–55
--- NOTE | 2020-07-28 00:08 | NUR ---
RN/ICU-COLD IV NS IL BOLUS WAS ADMINISTERED AT 1840 IN DAYSHIFT POST CODE BLUE.
--- NOTE | 2020-07-28 00:25 | NUR ---
RN NOTES RELAYED TO THIERRY HENSON NP THAT LAB CALLED REGARDING POTASSIUM 6.2 AND LACTIC REFLEX 10.4 PER ERLINDA TO GIVE REGULAR INSULIN 10 U IVP AN D50% SYRINGE. NOTED AND CARRIED OUT ORDER,
[2020-07-28] MEDS ORDERED: INSULIN REGULAR, HUMAN 100 UNIT/ML 10 ML VIAL IV ONE (01:00)
[2020-07-28] MEDS ORDERED: DEXTROSE 50%-WATER 50 ML DISP.SYRIN IVP ONE (01:00)
[2020-07-28 01:31] LABS: ABG BASE EXCESS -2.6 mmol/L; ABG PCO2 28.8 mmHg (35.0-45.0); ABG PO2 129.9 mmHg (75.0-100.0); AaDO2 293.4 mmHg; COHb 1.4 % (0.5-1.5); O2Hb 96.6 % (94.0-97.0); SITE, ABG Left Radial; VENT MODE, BG AC 30 500 60% + 5
--- NOTE | 2020-07-28 01:35 | NUR ---
RN NOTES PATIENT TEMPERATURE IS 33.9 DEG CELSIUS, COOLING BLANKET SET ON MONITOR. PER ORDER TO KEEP TEMPERATURE 34 DEG CELSIUS.
[2020-07-28] MEDS ORDERED: INSULIN REGULAR, HUMAN 100 UNIT/ML 3 ML VIAL ONE (02:00)
--- NOTE | 2020-07-28 03:10 | NUR ---
RN NOTES BLOOD TRANSFUSION FINISHED. NO BT REACTION NOTED. VSS. PATIENT TOLERATED IT WELL.
--- NOTE | 2020-07-28 04:00 | NUR ---
RN NOTES 0340 AM - BROUGHT PATIENT TO CT WITH RT, 2 RN AND RADIOLOGY STAFF, ISOLATION PRECAUTION PROVIDED. VENT MACHINE, LEVOPHED REMAINED CONNECTED TO PATIENT. WILL CLOSELY MONITOR. 0350 AM - PATIENT BACK TO ROOM NO CHANGE OF CONDITION NOTED.
[2020-07-28 04:55] LABS: HEMATOCRIT 26 % (39-51); HEMOGLOBIN 8.1 g/dL (13.5-17.5); LYMPHOCYTES # (AUTO) 0.4 /CMM (0.8-4.8); LYMPHOCYTES % (AUTO) 2.7 % (20.0-44.0); MEAN CORPUSCULAR HGB CONC 31 g/dl (31.0-36.0); MEAN CORPUSCULAR VOLUME 88 fL (80-96); MONOCYTES # (AUTO) 0.9 /CMM (0.1-1.30); MONOCYTES % (AUTO) 5.3 % (2.0-12.0); RED BLOOD CELL COUNT(AUTO) 2.97 MIL/uL (4.5-6.0); WHITE BLOOD COUNT (AUTO) 16.3 K/uL (4.3-11.0)
[2020-07-28 05:09] LABS: PLATELET COUNT (AUTO) 86 /CMM (150-450)
[2020-07-28 05:21] LABS: ALANINE AMINOTRANSFERASE 225 U/L (12-78); ALBUMIN 2.3 g/dL (3.4-5.0); ALKALINE PHOSPHATASE 74 U/L (46-116); ASPARTATE AMINOTRANSFERASE 413 U/L (15-37); BILIRUBIN,TOTAL 0.7 mg/dL (0.2-1.0); CALCIUM, SERUM 7.6 mg/dL (8.5-10.1); CARBON DIOXIDE 23 mmol/L (21-32); CHLORIDE 104 mmol/L (98-107); CREATININE 7.4 mg/dL (0.6-1.3); GLUCOSE 175 mg/dL (74-106); LIPASE 421 U/L (73-393); MAGNESIUM 2.4 mg/dL (1.8-2.4); PHOSPHORUS 2.3 mg/dL (2.5-4.9); POTASSIUM 2.9 mmol/L (3.5-5.1); SODIUM SERUM 144 mmol/L (136-145); TOTAL PROTEIN, SERUM 5.2 g/dL (6.4-8.2); UREA NITROGEN, BLOOD 67 mg/dL (7-18)
[2020-07-28 06:10] LABS: BAND % (MANUAL) 10 % (0.0-5.0); LYMPHOCYTES % (MANUAL) 4 % (16-48); MONOCYTES % (MANUAL) 7 % (0-11.0); NEUTROPHILS % (MANUAL) 79 (42-76)
--- NOTE | 2020-07-28 06:57 | NUR ---
RN NOTES INFORMED REGARDING PATIENTEKG RESULT AND CRITICAL LACTIC 9.6 WHICH IS TRENDING DOWN AND TROPONIN 0.451 AND EKG RESULT WAS ACUTE AZ. NNO AT THIS TIME AND SHE WILL COME DR. MCNEIL FOR CONSULT.
[2020-07-28] MEDS ORDERED: IV NS 0.9% 250 ML IV PRN (07:30)
[2020-07-28] MEDS ORDERED: IV NS 0.9% 1,000 ML IV SCH (08:00)
[2020-07-28] MEDS: SEVELAMER CARBONATE 800 MG TABLET PO SCH ×3 (08:00→17:17)
--- NOTE | 2020-07-28 08:00 | NUR ---
received pt from body straightener s/p cardiac arrest x2, obtunded, does not responds to pain stimuli, R pupil non reactive to light and fixed, L has cataract, on hypothermia protocol, temp is 93, obtunded, SB, intubated, receiving levo at 0.1mcg, NG clamped, HD pt, v/s stable, no pain, pt turned and repositioned.
[2020-07-28] MEDS: TIMOLOL 0.5% SOLN OPHTH 5 ML BOTTLE LEFTEYE SCH (08:41)
[2020-07-28] MEDS: DOCUSATE SODIUM 100 MG CAPSULE PO SCH (08:42)
[2020-07-28] MEDS: VIT B CMPLX 3/FA/VIT C/BIOTIN 1 TAB TABLET PO SCH (08:42)
[2020-07-28] MEDS: NEPRO VAN 237 ML CAN PO SCH (08:43)
[2020-07-28] MEDS: CHOLECALCIFEROL 1,000 UNIT TABLET (VIT D3) PO SCH (08:43)
[2020-07-28 08:49] LABS: ABG BASE EXCESS 3.4 mmol/L; ABG OXYGEN SATURATION 98.3 % (92.0-98.5); ABG PCO2 29.3 mmHg (35.0-45.0); ABG PH 7.557 (7.350-7.450); ABG PO2 139.5 mmHg (75.0-100.0); COHb 1.4 % (0.5-1.5); MetHb 0.3 % (0.0-1.5); O2Hb 96.6 % (94.0-97.0); PEEP,BG 5 cm H2O; SITE, ABG Left Radial; VT, ABG 500 mL
[2020-07-28] MEDS: HYDROCORTISONE SOD SUCCINATE 100 MG/2 ML VIAL IV SCH ×3 (08:49→21:29)
[2020-07-28] MEDS: DEXAMETHASONE SOD PHOSPHATE 10 MG/ML VIAL IV SCH (08:49)
[2020-07-28] MEDS: FAMOTIDINE/PF INJ 20 MG/2 ML VIAL IV SCH ×2 (08:49→21:29)
[2020-07-28] MEDS ORDERED: PANTOPRAZOLE 40 MG VIAL IV SCH (09:00)
[2020-07-28 12:26] LABS: CALCIUM, SERUM 7.4 mg/dL (8.5-10.1); CARBON DIOXIDE 22 mmol/L (21-32); CHLORIDE 106 mmol/L (98-107); CREATININE 7.1 mg/dL (0.6-1.3); GLUCOSE 89 mg/dL (74-106); MAGNESIUM 2.8 mg/dL (1.8-2.4); SODIUM SERUM 140 mmol/L (136-145); UREA NITROGEN, BLOOD 70 mg/dL (7-18)
[2020-07-28] MEDS: NOREPINEPHRINE 8 MG in IV NS 0.9% 242 ML IV PRN (14:55)
--- NOTE | 2020-07-28 16:21 | NUR ---
pt is resting in the bed, obtunded, no reflexes, R eye no pupil reaction, SB, sat well on 50% fi02, continuing hypothermia protocol until 20:30 today, temp is 93.0, HD cleaning only, receiving levo at 0.04mcg, v/s stable, no pain, pt cleaned, changed and repositioned.
--- NOTE | 2020-07-28 19:30 | NUR ---
INSTRUMENT CHECKER RCD PT S/P CODE BLUE ON HYPOTHERMIA PROTOCOL. PT IS OBTUNDED; NO RESPONSE TO STIMULI OR WHEN BEING SUCTIONED. SN/NSR ON MONITOR. LEVOPHED AT 0.02 MCG/KG/MIN VIA DANI MIDLINE. PT ANURIC. SKIN TEAR NOTED TO RIGHT FOREARM. SACRAL/BUTTOCK DTI W/MEPILEX IN PLACE. LABS PENDING.
[2020-07-28 20:36] LABS: BASOPHILS % (AUTO) 0.1 % (0.0-2.0); HEMATOCRIT 25 % (39-51); HEMOGLOBIN 7.9 g/dL (13.5-17.5); LYMPHOCYTES # (AUTO) 0.5 /CMM (0.8-4.8); LYMPHOCYTES % (AUTO) 3.4 % (20.0-44.0); MEAN CORPUSCULAR HGB CONC 32 g/dl (31.0-36.0); MEAN CORPUSCULAR VOLUME 86 fL (80-96); MONOCYTES # (AUTO) 0.6 /CMM (0.1-1.30); MONOCYTES % (AUTO) 3.7 % (2.0-12.0); NEUTROPHILS # (AUTO) 13.9 /CMM (1.8-8.9); NEUTROPHILS % (AUTO) 92.8 % (43.0-81.0); PLATELET COUNT (AUTO) 68 /CMM (150-450); RED BLOOD CELL COUNT(AUTO) 2.86 MIL/uL (4.5-6.0)
[2020-07-28 20:54] LABS: ALANINE AMINOTRANSFERASE 250 U/L (12-78); ALKALINE PHOSPHATASE 63 U/L (46-116); ASPARTATE AMINOTRANSFERASE 404 U/L (15-37); BILIRUBIN,TOTAL 1.1 mg/dL (0.2-1.0); CALCIUM, SERUM 7.3 mg/dL (8.5-10.1); CARBON DIOXIDE 31 mmol/L (21-32); CHLORIDE 106 mmol/L (98-107); CREATININE 5.4 mg/dL (0.6-1.3); GLUCOSE 78 mg/dL (74-106); PHOSPHORUS 3.1 mg/dL (2.5-4.9); POTASSIUM 3.8 mmol/L (3.5-5.1); SODIUM SERUM 144 mmol/L (136-145); TOTAL PROTEIN, SERUM 4.7 g/dL (6.4-8.2); UREA NITROGEN, BLOOD 50 mg/dL (7-18)
[2020-07-28] MEDS: PRAMIPEXOLE DI-HCL 0.25 MG TABLET PO SCH ×2 (21:29→23:00)
[2020-07-28] MEDS: SEROQUEL 50 MG PO SCH (21:30)
[2020-07-28] MEDS: CEFTRIAXONE 1 G in IV D5W 50 ML IV SCH (21:30)
[2020-07-28 21:31] LABS: BAND % (MANUAL) 14 % (0.0-5.0); LYMPHOCYTES % (MANUAL) 1 % (16-48); MONOCYTES % (MANUAL) 1 % (0-11.0); NEUTROPHILS % (MANUAL) 84 (42-76)
--- NOTE | 2020-07-28 22:55 | NUR ---
RT NOTE PT ORALLY INTUBATED VIA ETT SZ #7.5 SECURED AT 24CM AT THE LIP LINE. PT ON [facility] VENT ON AC MODE SETTINGS CHARTED. PT SX'D FOR SMALL AMT OF PALE YELLOW SECRETIONS. ALARMS ARE SET AND AUDIBLE. VENT PLUGGED INTO RED OUTLET. AMBU BAG BEDSIDE. WILL CONTINUE TO MONITOR CLOSELY. Addendum: 07/28/20 at 8438 by TRINI JALLOH RT Amended: Links added.
[2020-07-29] VITALS (92 sets, daily range): BP systolic 61–139; BP diastolic 23–56
--- NOTE | 2020-07-29 | NUR ---
HYDROGENATION OPERATOR NOTED BP DROPPING AFTER PT TURNED AND REPOSITIONED. INCREASED LEVOPHED PER PROTOCOL.
--- NOTE | 2020-07-29 02:00 | NUR ---
PARK SERVICES SPECIALIST NOTED BP DROPPING AFTER PT TURNED AND REPOSITIONED. INCREASED LEVOPHED PER PROTOCOL.
[2020-07-29 02:35] LABS: CALCIUM, SERUM 7.2 mg/dL (8.5-10.1); CARBON DIOXIDE 31 mmol/L (21-32); CHLORIDE 106 mmol/L (98-107); CREATININE 5.7 mg/dL (0.6-1.3); GLUCOSE 84 mg/dL (74-106); MAGNESIUM 2.1 mg/dL (1.8-2.4); POTASSIUM 4.1 mmol/L (3.5-5.1); SODIUM SERUM 143 mmol/L (136-145); UREA NITROGEN, BLOOD 57 mg/dL (7-18)
[2020-07-29 02:49] LABS: ABG BASE EXCESS 4.7 mmol/L; ABG OXYGEN SATURATION 97.3 % (92.0-98.5); ABG PCO2 28.2 mmHg (35.0-45.0); ABG PH 7.589 (7.350-7.450); ABG PO2 102.7 mmHg (75.0-100.0); AaDO2 232.2 mmHg; COHb 2.1 % (0.5-1.5); MetHb 0.4 % (0.0-1.5); O2Hb 94.9 % (94.0-97.0); PEEP,BG 5 cm H2O; SITE, ABG Left Brachial; VENT MODE, BG AC 20 500 50% +5; VT, ABG 500 mL
[2020-07-29] MEDS: NOREPINEPHRINE 8 MG in IV NS 0.9% 242 ML IV PRN ×3 (03:19→22:00)
[2020-07-29] MEDS: HYDROCORTISONE SOD SUCCINATE 100 MG/2 ML VIAL IV SCH ×3 (04:54→21:30)
--- NOTE | 2020-07-29 06:42 | NUR ---
RUNNING INSTRUCTOR UNABLE TO REPOSITION PT HE IS HEMODYNAMIC UNSTABLE.
--- NOTE | 2020-07-29 06:44 | NUR ---
ROUTE SALES PERSON AC DECREASED TO 18 POST ABG.
--- NOTE | 2020-07-29 07:41 | NUR ---
WOUND CARE CONSULT: REVIEWED CHART, NURSING DOCUMENTATION AND DISCUSSED SKIN WITH NURSING STAFF. PHOTOS INDICATE SACRAL INTACT DEEP TISSUE INJURY, PRESENT ON ADMISSION AND SKIN TEARS TO RT ARM. RECOMMENDATIONS MADE FOR WOUND CARE AND SKIN PROTECTION. DISCUSSED WITH NURSING STAFF. MD IN AGREEMENT WITH PLAN OF CARE.
[2020-07-29] MEDS: SEVELAMER CARBONATE 800 MG TABLET PO SCH ×3 (08:00→18:00)
--- NOTE | 2020-07-29 08:26 | NUR ---
received pt from shift leader, obtunded/comatose, no reflexes, L cataract, R fixed non reactive to light, does not respond to pain stimuli, SR, SB, intubated, sat well on 50% fi02, NG clamped, HD patient, receiving levo at 0.06mcg, v/s stable, no pain, pt turned and repositioned.
[2020-07-29] MEDS: FAMOTIDINE/PF INJ 20 MG/2 ML VIAL IV SCH ×3 (08:56→21:30)
[2020-07-29] MEDS: VIT B CMPLX 3/FA/VIT C/BIOTIN 1 TAB TABLET PO SCH (08:57)
[2020-07-29] MEDS: CHOLECALCIFEROL 1,000 UNIT TABLET (VIT D3) PO SCH (08:57)
[2020-07-29] MEDS: NEPRO VAN 237 ML CAN PO SCH (08:57)
[2020-07-29] MEDS: TIMOLOL 0.5% SOLN OPHTH 5 ML BOTTLE LEFTEYE SCH (08:57)
[2020-07-29] MEDS: DOCUSATE SODIUM 100 MG CAPSULE PO SCH (08:57)
[2020-07-29] MEDS: DEXAMETHASONE SOD PHOSPHATE 10 MG/ML VIAL IV SCH (09:00)
--- NOTE | 2020-07-29 16:15 | NUR ---
pt is resting in the bed, obtunded/comatose, SB, SR, sat well on 50% fi02, v/s stable, no pain, receiving levo at 0.04mcg, pt cleaned, changed and repositioned.
--- NOTE | 2020-07-29 19:30 | NUR ---
BLEACHER GR[employer]OD PULP RCD PT S/P CODE BLUE. PT IS OBTUNDED; NO RESPONSE TO STIMULI OR WHEN BEING SUCTIONED. SB ON MONITOR. LEVOPHED AT 0.03 MCG/KG/MIN VIA DANI MIDLINE. PT ANURIC. SKIN TEAR NOTED TO RIGHT FOREARM. SACRAL/BUTTOCK DTI W/MEPILEX IN PLACE.NEURO CONSULT PENDING. NG TUBE CLAMPED.
[2020-07-29 19:54] LABS: BASOPHILS % (AUTO) 0.1 % (0.0-2.0); HEMATOCRIT 22 % (39-51); HEMOGLOBIN 7.1 g/dL (13.5-17.5); LYMPHOCYTES # (AUTO) 0.4 /CMM (0.8-4.8); LYMPHOCYTES % (AUTO) 1.8 % (20.0-44.0); MEAN CORPUSCULAR HGB CONC 32 g/dl (31.0-36.0); MEAN CORPUSCULAR VOLUME 86 fL (80-96); MONOCYTES # (AUTO) 0.5 /CMM (0.1-1.30); MONOCYTES % (AUTO) 2.2 % (2.0-12.0); NEUTROPHILS # (AUTO) 22.1 /CMM (1.8-8.9); NEUTROPHILS % (AUTO) 95.9 % (43.0-81.0); PLATELET COUNT (AUTO) 76 /CMM (150-450); RED BLOOD CELL COUNT(AUTO) 2.59 MIL/uL (4.5-6.0); WHITE BLOOD COUNT (AUTO) 23.1 K/uL (4.3-11.0)
[2020-07-29 20:24] LABS: ALANINE AMINOTRANSFERASE 184 U/L (12-78); ALKALINE PHOSPHATASE 64 U/L (46-116); ASPARTATE AMINOTRANSFERASE 208 U/L (15-37); BILIRUBIN,TOTAL 0.7 mg/dL (0.2-1.0); CALCIUM, SERUM 7.5 mg/dL (8.5-10.1); CARBON DIOXIDE 32 mmol/L (21-32); CHLORIDE 106 mmol/L (98-107); CREATININE 6.6 mg/dL (0.6-1.3); GLUCOSE 103 mg/dL (74-106); MAGNESIUM 2.2 mg/dL (1.8-2.4); POTASSIUM 4.9 mmol/L (3.5-5.1); SODIUM SERUM 144 mmol/L (136-145); UREA NITROGEN, BLOOD 75 mg/dL (7-18)
[2020-07-29] MEDS: CEFTRIAXONE 1 G in IV D5W 50 ML IV SCH (21:30)
[2020-07-29] MEDS: PRAMIPEXOLE DI-HCL 0.25 MG TABLET PO SCH ×2 (21:30→21:54)
[2020-07-29] MEDS: SEROQUEL 50 MG PO SCH (21:53)
[2020-07-29 23:14] LABS: BAND % (MANUAL) 21 % (0.0-5.0); LYMPHOCYTES % (MANUAL) 1 % (16-48); MONOCYTES % (MANUAL) 2 % (0-11.0); NEUTROPHILS % (MANUAL) 76 (42-76)
[2020-07-30] VITALS (65 sets, daily range): BP systolic 92–133; BP diastolic 28–78
[2020-07-30 01:25] LABS: HEMATOCRIT 21 % (39-51); LYMPHOCYTES # (AUTO) 0.5 /CMM (0.8-4.8); LYMPHOCYTES % (AUTO) 2.6 % (20.0-44.0); MEAN CORPUSCULAR HGB CONC 32 g/dl (31.0-36.0); MEAN CORPUSCULAR VOLUME 86 fL (80-96); MONOCYTES # (AUTO) 0.4 /CMM (0.1-1.30); NEUTROPHILS # (AUTO) 18.5 /CMM (1.8-8.9); NEUTROPHILS % (AUTO) 95.4 % (43.0-81.0); PLATELET COUNT (AUTO) 74 /CMM (150-450); RED BLOOD CELL COUNT(AUTO) 2.41 MIL/uL (4.5-6.0); WHITE BLOOD COUNT (AUTO) 19.4 K/uL (4.3-11.0)
[2020-07-30 01:31] LABS: HEMOGLOBIN 6.6 g/dL (13.5-17.5)
[2020-07-30 01:37] LABS: CALCIUM, SERUM 7.6 mg/dL (8.5-10.1); CARBON DIOXIDE 31 mmol/L (21-32); CHLORIDE 105 mmol/L (98-107); CREATININE 6.8 mg/dL (0.6-1.3); GLUCOSE 109 mg/dL (74-106); MAGNESIUM 2.3 mg/dL (1.8-2.4); POTASSIUM 4.8 mmol/L (3.5-5.1); SODIUM SERUM 143 mmol/L (136-145)
[2020-07-30 01:40] LABS: ALANINE AMINOTRANSFERASE 161 U/L (12-78); ALBUMIN 1.8 g/dL (3.4-5.0); ALKALINE PHOSPHATASE 61 U/L (46-116); ASPARTATE AMINOTRANSFERASE 185 U/L (15-37); BILIRUBIN,TOTAL 0.7 mg/dL (0.2-1.0); CALCIUM, SERUM 7.4 mg/dL (8.5-10.1); CARBON DIOXIDE 30 mmol/L (21-32); CHLORIDE 105 mmol/L (98-107); CREATININE 6.9 mg/dL (0.6-1.3); GLUCOSE 109 mg/dL (74-106); MAGNESIUM 2.3 mg/dL (1.8-2.4); PHOSPHORUS 6.4 mg/dL (2.5-4.9); POTASSIUM 4.8 mmol/L (3.5-5.1); SODIUM SERUM 143 mmol/L (136-145); TOTAL PROTEIN, SERUM 4.8 g/dL (6.4-8.2)
[2020-07-30 01:46] LABS: UREA NITROGEN, BLOOD 82 mg/dL (7-18)
[2020-07-30 01:50] LABS: UREA NITROGEN, BLOOD 80 mg/dL (7-18)
[2020-07-30 02:24] LABS: BAND % (MANUAL) 3 % (0.0-5.0); LYMPHOCYTES % (MANUAL) 6 % (16-48); MONOCYTES % (MANUAL) 2 % (0-11.0); NEUTROPHILS % (MANUAL) 89 (42-76)
--- NOTE | 2020-07-30 04:54 | NUR ---
CERTIFIED NEURODIAGNOSTIC TECHNOLOGIST PRBC TRANSFUSION STARTED FOR HG 6.6. CONTINUE TO MONITOR.
[2020-07-30] MEDS: HYDROCORTISONE SOD SUCCINATE 100 MG/2 ML VIAL IV SCH (05:37)
[2020-07-30] MEDS: SEVELAMER CARBONATE 800 MG TABLET PO SCH ×3 (08:00→17:19)
--- NOTE | 2020-07-30 08:23 | NUR ---
received pt from cage shift manager, obtunded/comatose, no reflexes, SB, intubated, sat well, NG clamped, HD patient, on Florina hugger, v/s stable, no pain, one unit PRBCs transfused, pt turned and repositioned.
[2020-07-30] MEDS: DOCUSATE SODIUM 100 MG CAPSULE PO SCH (09:00)
[2020-07-30] MEDS: TIMOLOL 0.5% SOLN OPHTH 5 ML BOTTLE LEFTEYE SCH (09:00)
[2020-07-30] MEDS: NEPRO VAN 237 ML CAN PO SCH (09:01)
[2020-07-30] MEDS: VIT B CMPLX 3/FA/VIT C/BIOTIN 1 TAB TABLET PO SCH (09:01)
[2020-07-30] MEDS: CHOLECALCIFEROL 1,000 UNIT TABLET (VIT D3) PO SCH (09:01)
[2020-07-30] MEDS: DEXAMETHASONE SOD PHOSPHATE 10 MG/ML VIAL IV SCH (09:06)
[2020-07-30] MEDS: FAMOTIDINE/PF INJ 20 MG/2 ML VIAL IV SCH ×2 (09:06→21:06)
[2020-07-30] MEDS: IV D5/ 0.9% NACL 1,000 ML IV PRN (11:15)
--- NOTE | 2020-07-30 16:39 | NUR ---
pt is comatose/semicomatose, SR, SB, intubated, sat well, NG clamped, HD done cleaning only, v/s stable, no pain, pt cleaned, changed and repositioned.
[2020-07-30] MEDS: CEFTRIAXONE 1 G in IV D5W 50 ML IV SCH (21:06)
[2020-07-30] MEDS: SEROQUEL 50 MG PO SCH (21:07)
[2020-07-30] MEDS: PRAMIPEXOLE DI-HCL 0.25 MG TABLET PO SCH (21:08)
[2020-07-31] VITALS (38 sets, daily range): BP systolic 119–149; BP diastolic 37–55
[2020-07-31 00:57] LABS: CALCIUM, SERUM 7.7 mg/dL (8.5-10.1); CARBON DIOXIDE 30 mmol/L (21-32); CHLORIDE 104 mmol/L (98-107); CREATININE 5.3 mg/dL (0.6-1.3); GLUCOSE 131 mg/dL (74-106); MAGNESIUM 2.3 mg/dL (1.8-2.4); POTASSIUM 5.1 mmol/L (3.5-5.1); SODIUM SERUM 141 mmol/L (136-145); UREA NITROGEN, BLOOD 68 mg/dL (7-18)
[2020-07-31] MEDS: IV D5/ 0.9% NACL 1,000 ML IV PRN (01:10)
[2020-07-31 05:10] LABS: BASOPHILS % (AUTO) 0.1 % (0.0-2.0); HEMATOCRIT 25 % (39-51); HEMOGLOBIN 7.9 g/dL (13.5-17.5); LYMPHOCYTES # (AUTO) 0.4 /CMM (0.8-4.8); LYMPHOCYTES % (AUTO) 2.2 % (20.0-44.0); MEAN CORPUSCULAR HGB CONC 32 g/dl (31.0-36.0); MEAN CORPUSCULAR VOLUME 86 fL (80-96); MONOCYTES # (AUTO) 0.3 /CMM (0.1-1.30); MONOCYTES % (AUTO) 1.4 % (2.0-12.0); NEUTROPHILS # (AUTO) 17.9 /CMM (1.8-8.9); NEUTROPHILS % (AUTO) 96.3 % (43.0-81.0); PLATELET COUNT (AUTO) 65 /CMM (150-450); RED BLOOD CELL COUNT(AUTO) 2.89 MIL/uL (4.5-6.0); WHITE BLOOD COUNT (AUTO) 18.5 K/uL (4.3-11.0)
[2020-07-31 05:25] LABS: CALCIUM, SERUM 7.6 mg/dL (8.5-10.1); CARBON DIOXIDE 28 mmol/L (21-32); CHLORIDE 104 mmol/L (98-107); CREATININE 5.5 mg/dL (0.6-1.3); GLUCOSE 141 mg/dL (74-106); POTASSIUM 5.1 mmol/L (3.5-5.1); SODIUM SERUM 141 mmol/L (136-145); UREA NITROGEN, BLOOD 71 mg/dL (7-18)
[2020-07-31] MEDS: SEVELAMER CARBONATE 800 MG TABLET PO SCH ×3 (08:00→18:10)
[2020-07-31] MEDS: DEXAMETHASONE SOD PHOSPHATE 10 MG/ML VIAL IV SCH (08:54)
[2020-07-31] MEDS: FAMOTIDINE/PF INJ 20 MG/2 ML VIAL IV SCH ×2 (08:55→20:07)
[2020-07-31] MEDS: TIMOLOL 0.5% SOLN OPHTH 5 ML BOTTLE LEFTEYE SCH (08:56)
[2020-07-31] MEDS: DOCUSATE SODIUM 100 MG CAPSULE PO SCH (09:00)
[2020-07-31] MEDS: VIT B CMPLX 3/FA/VIT C/BIOTIN 1 TAB TABLET PO SCH (09:00)
[2020-07-31] MEDS: NEPRO VAN 237 ML CAN PO SCH (09:00)
[2020-07-31] MEDS: CHOLECALCIFEROL 1,000 UNIT TABLET (VIT D3) PO SCH (09:00)
--- NOTE | 2020-07-31 10:05 | NUR ---
RN NOTE REPORT GIVEN TO INCOMING SHIFT FOR RENATA.
[2020-07-31] MEDS ORDERED: NEPRO 1,000 ML BOTTLE GT PRN (10:30)
--- NOTE | 2020-07-31 11:44 | NUR ---
Pt Full code isolation for Covid intubated without sedation. GCS3, no gag. Subclavian dialysis access inplace. Orders and lab results reviewed. Addendum: 07/31/20 at 1434 by LEO SIM RN IVF DC'd as ordered. No new changes. Addendum: 07/31/20 at 1752 by LEO SIM RN Updated Karissa Magaña with POC, no new changes. Awaiting feeding pump since early AM.
[2020-07-31 11:58] LABS: ABG BASE EXCESS -0.2 mmol/L; AaDO2 157.7 mmHg; COHb 1.5 % (0.5-1.5); MetHb 0.6 % (0.0-1.5); PEEP,BG 5 cm H2O; SITE, ABG Left Brachial; VT, ABG 450 mL
[2020-07-31] MEDS: CEFTRIAXONE 1 G in IV D5W 50 ML IV SCH (20:07)
[2020-07-31] MEDS: SEROQUEL 50 MG PO SCH (22:00)
[2020-07-31] MEDS: PRAMIPEXOLE DI-HCL 0.25 MG TABLET PO SCH (22:00)
--- NOTE | 2020-07-31 22:44 | NUR ---
ASSOCIATE EDITOR NOTES PATIENT REMAINS OBTUNDED, NO GAG REFLEX. SEROQUEL HELD DUE TO CURRENT MENTAL STATUS
[2020-08-01] VITALS (38 sets, daily range): BP systolic 106–141; BP diastolic 34–49
[2020-08-01 01:23] LABS: CALCIUM, SERUM 7.4 mg/dL (8.5-10.1); CARBON DIOXIDE 27 mmol/L (21-32); CHLORIDE 104 mmol/L (98-107); CREATININE 6.7 mg/dL (0.6-1.3); GLUCOSE 155 mg/dL (74-106); MAGNESIUM 2.3 mg/dL (1.8-2.4); POTASSIUM 5.4 mmol/L (3.5-5.1); SODIUM SERUM 141 mmol/L (136-145)
[2020-08-01 01:27] LABS: UREA NITROGEN, BLOOD 96 mg/dL (7-18)
[2020-08-01] MEDS ORDERED: NEPRO 1,000 ML BOTTLE NG PRN ×2 (02:00→15:43)
[2020-08-01 04:35] LABS: BASOPHILS % (AUTO) 0.2 % (0.0-2.0); HEMATOCRIT 27 % (39-51); HEMOGLOBIN 8.5 g/dL (13.5-17.5); LYMPHOCYTES # (AUTO) 0.4 /CMM (0.8-4.8); LYMPHOCYTES % (AUTO) 2.2 % (20.0-44.0); MEAN CORPUSCULAR HGB CONC 31 g/dl (31.0-36.0); MEAN CORPUSCULAR VOLUME 87 fL (80-96); MONOCYTES # (AUTO) 0.4 /CMM (0.1-1.30); MONOCYTES % (AUTO) 2.5 % (2.0-12.0); NEUTROPHILS # (AUTO) 15.3 /CMM (1.8-8.9); NEUTROPHILS % (AUTO) 95.1 % (43.0-81.0); PLATELET COUNT (AUTO) 75 /CMM (150-450); WHITE BLOOD COUNT (AUTO) 16.1 K/uL (4.3-11.0)
[2020-08-01] MEDS ORDERED: PHARMACY TO CHANGE PO MEDS TO GT/NG XX PRN (08:00)
[2020-08-01 08:08] LABS: ABG BASE EXCESS -1.3 mmol/L; ABG OXYGEN SATURATION 97.5 % (92.0-98.5); ABG PCO2 34.1 mmHg (35.0-45.0); ABG PH 7.438 (7.350-7.450); ABG PO2 112.9 mmHg (75.0-100.0); AaDO2 133.1 mmHg; COHb 1.4 % (0.5-1.5); MetHb 0.2 % (0.0-1.5); O2Hb 95.9 % (94.0-97.0); SITE, ABG Left Radial; VENT MODE, BG AC 16 450 40% +5
[2020-08-01] MEDS ORDERED: LOPERAMIDE HCL UDC(2 MG/10 ML) 2 MG/10 ML UDC NG PRN (08:30)
[2020-08-01] MEDS ORDERED: MAGNESIUM HYDROXIDE 30 ML UDC NG PRN ×2 (08:30)
[2020-08-01] MEDS ORDERED: MAG HYDROX/AL HYDROX/SIMETH 30 ML UDC NG PRN (08:30)
[2020-08-01] MEDS ORDERED: NEPRO VAN 237 ML CAN NG SCH ×3 (09:00→17:00)
[2020-08-01] MEDS: SEVELAMER CARBONATE 800 MG POWD.PACK NG SCH ×2 (09:10→18:58)
[2020-08-01] MEDS: DEXAMETHASONE SOD PHOSPHATE 10 MG/ML VIAL IV SCH (09:10)
[2020-08-01] MEDS: DOCUSATE SODIUM LIQ 100 MG/10 ML UDC NG SCH (09:10)
[2020-08-01] MEDS: FAMOTIDINE/PF INJ 20 MG/2 ML VIAL IV SCH (09:11)
[2020-08-01] MEDS: VIT B CMPLX 3/FA/VIT C/BIOTIN 1 TAB TABLET NG SCH (09:11)
[2020-08-01] MEDS: CHOLECALCIFEROL 1,000 UNIT TABLET (VIT D3) NG SCH (09:11)
[2020-08-01] MEDS: TIMOLOL 0.5% SOLN OPHTH 5 ML BOTTLE LEFTEYE SCH (09:12)
[2020-08-01] MEDS: NEPRO VAN 237 ML CAN NG SCH ×2 (18:58→21:29)
[2020-08-01] MEDS: CEFTRIAXONE 1 G in IV D5W 50 ML IV SCH (21:25)
[2020-08-01] MEDS ORDERED: FAMOTIDINE (20 MG) 20 MG TABLET NG SCH (22:00)
[2020-08-01] MEDS ORDERED: SEROQUEL 50 MG NG SCH (22:00)
[2020-08-01] MEDS ORDERED: PRAMIPEXOLE DI-HCL 0.25 MG TABLET NG SCH (22:00)
--- NOTE | 2020-08-01 22:30 | NUR ---
HEATER OPERATOR NOTES PATIENT REMAINS OBTUNDED, NO GAG REFLEX. SEROQUEL HELD DUE TO CURRENT MENTAL STATUS
[2020-08-02] VITALS (31 sets, daily range): BP systolic 104–132; BP diastolic 35–61
[2020-08-02] MEDS: SEVELAMER CARBONATE 800 MG POWD.PACK NG SCH ×2 (01:10→09:47)
[2020-08-02] MEDS: NEPRO VAN 237 ML CAN NG SCH ×3 (01:10→09:48)
[2020-08-02 01:25] LABS: CALCIUM, SERUM 6.9 mg/dL (8.5-10.1); CARBON DIOXIDE 26 mmol/L (21-32); CHLORIDE 103 mmol/L (98-107); CREATININE 5.3 mg/dL (0.6-1.3); GLUCOSE 226 mg/dL (74-106); MAGNESIUM 2.2 mg/dL (1.8-2.4); POTASSIUM 5.1 mmol/L (3.5-5.1); SODIUM SERUM 140 mmol/L (136-145); UREA NITROGEN, BLOOD 78 mg/dL (7-18)
[2020-08-02 01:27] LABS: BASOPHILS % (AUTO) 0.1 % (0.0-2.0); HEMATOCRIT 25 % (39-51); HEMOGLOBIN 7.7 g/dL (13.5-17.5); LYMPHOCYTES # (AUTO) 0.3 /CMM (0.8-4.8); LYMPHOCYTES % (AUTO) 2.2 % (20.0-44.0); MEAN CORPUSCULAR HGB CONC 31 g/dl (31.0-36.0); MEAN CORPUSCULAR VOLUME 88 fL (80-96); MONOCYTES # (AUTO) 0.5 /CMM (0.1-1.30); MONOCYTES % (AUTO) 3.4 % (2.0-12.0); NEUTROPHILS # (AUTO) 12.9 /CMM (1.8-8.9); NEUTROPHILS % (AUTO) 94.3 % (43.0-81.0); PLATELET COUNT (AUTO) 75 /CMM (150-450); RED BLOOD CELL COUNT(AUTO) 2.81 MIL/uL (4.5-6.0); WHITE BLOOD COUNT (AUTO) 13.7 K/uL (4.3-11.0)
[2020-08-02 01:47] LABS: LYMPHOCYTES % (MANUAL) 2 % (16-48); MONOCYTES % (MANUAL) 6 % (0-11.0); NEUTROPHILS % (MANUAL) 92 (42-76)
[2020-08-02 05:33] LABS: BILIRUBIN,DIRECT 0.5 mg/dL (0.0-0.2); BILIRUBIN,TOTAL 0.7 mg/dL (0.2-1.0)
--- NOTE | 2020-08-02 06:30 | NUR ---
POWDER MIXER NOTES NO ACUTE CHANGES THROUGHOUT SHIFT. TOLERATING BOLUS TUBE FEEDING WELL, MINIMAL GASTRIC RESIDUALS. PATIENT CONTINUES ON MECHANICAL VENTILATION VIA ETT, FIO2 40%, PEEP +5. WILL ENDORSE THE PATIENT TO THE AM SHIFT NURSE FOR RENATA
[2020-08-02] MEDS: DOCUSATE SODIUM LIQ 100 MG/10 ML UDC NG SCH (08:16)
[2020-08-02 08:48] LABS: ABG BASE EXCESS -0.3 mmol/L; ABG OXYGEN SATURATION 96.9 % (92.0-98.5); ABG PCO2 43.4 mmHg (35.0-45.0); ABG PH 7.376 (7.350-7.450); ABG PO2 107.1 mmHg (75.0-100.0); AaDO2 128.2 mmHg; COHb 2.4 % (0.5-1.5); MetHb 0.7 % (0.0-1.5); O2Hb 93.9 % (94.0-97.0); PEEP,BG 5 cm H2O; SITE, ABG Right Radial; VT, ABG 450 mL
[2020-08-02] MEDS: DEXAMETHASONE SOD PHOSPHATE 10 MG/ML VIAL IV SCH (09:46)
[2020-08-02] MEDS: TIMOLOL 0.5% SOLN OPHTH 5 ML BOTTLE LEFTEYE SCH (09:47)
[2020-08-02] MEDS: CHOLECALCIFEROL 1,000 UNIT TABLET (VIT D3) NG SCH (09:47)
[2020-08-02] MEDS: VIT B CMPLX 3/FA/VIT C/BIOTIN 1 TAB TABLET NG SCH (09:47)
[2020-08-02] MEDS ORDERED: DC PROPOFOL WHEN EXTUBATED XX PRN (11:30)
--- NOTE | 2020-08-02 11:32 | NUR ---
PER ORDERS FROM DR. DONG PT IS TO BE MADE COMFORT MEASURES. PT'S DAUGHTER IS COMING TO SEE PATIENT SAFELY THROUGH THE WINDOW, PER COVID PRECAUTIONS BEFORE PT IS EXTUBATED.
--- NOTE | 2020-08-02 13:34 | NUR ---
@ 1334 pt terminal extubated as order. Addendum: 08/02/20 at 1344 by VEE WISLON RT Amended: Links added.
--- NOTE | 2020-08-02 13:45 | NUR ---
PIPE ORGAN TUNER AND REPAIRER NOTE PT ON COMFORT CARE. PT TERMINALLY EXTUBATED WITH NO APPRECIABLE RESPIRATORY EFFORT. PT APNEIC, AREFLEXIVE, ASYSTOLIC. PRONOUNCED AT 1345.
[2020-08-02] MEDS ORDERED: CALCIUM CHLORIDE 1,000 MG/10 ML DISP.SYRIN IV ONE (17:04)
[2020-08-02] MEDS ORDERED: EPINEPHRINE (1:1000) 1 MG/ML AMPUL SUBCUT ONE (17:04)
[2020-08-02] MEDS ORDERED: EPINEPHRINE (1:10,000) SYRINGE 1 MG/10 ML DISP.SYRIN IVP ONE (17:04)
== END 2020-08-02 17:05 | disposition expired | DRG 870 ==
LOC: ER 18:33 → TELE1 21:08 → MEDSG1 07-27 14:58 → ICU 07-27 18:08
PROVIDERS: ADMIT Internal Medicine; ATTEND Internal Medicine
PROC: 5A1D70Z Performance of Urinary Filtration, Intermittent, Less than 6 Hours Per Day (ICD-10-PCS; 2020-07-26)
PROC: 5A1955Z Respiratory Ventilation, Greater than 96 Consecutive Hours (ICD-10-PCS; principal; 2020-07-27)
PROC: 0BH18EZ Insertion of Endotracheal Airway into Trachea, Via Natural or Artificial Opening Endoscopic (ICD-10-PCS; 2020-07-27)
PROC: 5A2204Z Restoration of Cardiac Rhythm, Single (ICD-10-PCS; 2020-07-27)
PROC: 30233N1 Transfusion of Nonautologous Red Blood Cells into Peripheral Vein, Percutaneous Approach (ICD-10-PCS; 2020-07-30)
DX: A41.89 Other specified sepsis (principal); U07.1 COVID-19; N18.6 End stage renal disease; G93.41 Metabolic encephalopathy; I21.A1 Myocardial infarction type 2; R65.21 Severe sepsis with septic shock; I63.9 Cerebral infarction, unspecified; I13.2 Hypertensive heart and chronic kidney disease with heart failure and with stage 5 chronic kidney disease, or end stage renal disease; G93.1 Anoxic brain damage, not elsewhere classified; D68.69 Other thrombophilia; E87.2 Acidosis; Z51.5 Encounter for palliative care; Z99.2 Dependence on renal dialysis; I50.9 Heart failure, unspecified; F03.90 Unspecified dementia, unspecified severity, without behavioral disturbance, psychotic disturbance, mood disturbance, and anxiety; E87.5 Hyperkalemia; I25.10 Atherosclerotic heart disease of native coronary artery without angina pectoris; E11.36 Type 2 diabetes mellitus with diabetic cataract; E11.22 Type 2 diabetes mellitus with diabetic chronic kidney disease; D69.6 Thrombocytopenia, unspecified; Z88.5 Allergy status to narcotic agent; Z88.8 Allergy status to other drugs, medicaments and biological substances; Z79.899 Other long term (current) drug therapy; E78.5 Hyperlipidemia, unspecified; D50.9 Iron deficiency anemia, unspecified; K21.9 Gastro-esophageal reflux disease without esophagitis; Z83.3 Family history of diabetes mellitus; Z82.49 Family history of ischemic heart disease and other diseases of the circulatory system; H40.9 Unspecified glaucoma; H54.62 Unqualified visual loss, left eye, normal vision right eye; I46.9 Cardiac arrest, cause unspecified
CPT/HCPCS: 31720; 36410; 36415; 36600; 70450-TC; 71045-TC; 80048-TC; 80053-TC; 80074; 80076-TC; 82247-TC; 82248-TC; 82330; 82533; 82550-TC; 82553; 82803-TC; 82962-TC; 83605-TC; 83690-TC; 83735-TC; 84100-TC; 84484-TC; 85025-TC; 85378-TC; 85610-TC; 85730-TC; 86140-TC; 86850-TC; 87040-TC; 87081-TC; 90935-TC; 92950-TC; 94003-TC; 94640; 94664; 94760-TC; 94762-TC; 94799-TC; 99082-TC; A6253; C9803; G0378; J0171; J0692; J0696; J1100; J1644; J1720; J1815; J3370; J3490; J7030; J7042; J7050; J7060; P9016-BL; U0003